=== PATIENT | female | born 1990 | race African-American/Black ===

== ENCOUNTER 2020-05-31 11:23 | Emergency (ER) | payer OTHER ==
[~2020-05-31] VITALS: Ht 172.7 cm; Wt 99.8 kg
[2020-05-31 11:40] VITALS: BP 131/81
--- NOTE | 2020-05-31 11:40 | Emergency Room Report ---
History of Present Illness General Chief Complaint: Abdominal Pain Source: EMS (Clint Patel MD) Present Illness HPI Disclaimer: Please note that this report is being documented using DRAGON technology. This can lead to erroneous entry secondary to incorrect interpretation by the dictating instrument. HPI: 30-year-old female presents for evaluation abdominal pain and vomiting. Symptoms began yesterday morning after breakfast. The previous night she had gotten some takeout food and awoke with an upset stomach. Multiple episodes of bilious emesis but denies blood. Denies diarrhea, flank pain, dysuria. She is currently on her menses. Report some lower pelvic cramping as well as upper epigastric discomfort. Unable to eat or drink yesterday. Reports persistent nausea, lightheadedness. Denies cough, fever, sore throat, nasal congestion, chest pain, palpitations, shortness of breath. Status post cholecystectomy. Denies alcohol use. Reports regular marijuana use. PMH: Obesity PSH: Cholecystectomy Allergies: Denies Social Hx: Regular marijuana use (Clint Patel MD) Allergies: Coded Allergies: No Known Allergies (Unverified , 05/31/20) COVID-19 Screening Contact w/high risk pt: No Experienced COVID-19 symptoms?: No COVID-19 Testing performed FEEDER TENDER: No (Clint Patel MD) Review of Systems All Other Systems: negative except mentioned in HPI (Clint Patel MD) Physical Exam Vital Signs Date Time Temp Pulse Resp B/P (MAP) Pulse Ox O2 Delivery O2 Flow Rate FiO2 05/31/20 11:17 97.7 68 19 138/88 (105) 100 Room Air General: Awake and alert, appears fatigued and mildly uncomfortable HEENT: NC/AT. EOMI. Cardiovascular: RRR. S1 and S2 normal. No murmur appreciated Resp: Normal work of breathing. No cough, wheezing or crackles appreciated Abdomen: Abdomen is soft, nondistended. Obese abdomen. Tender in the epigastrium and suprapubic region. Negative Nichole's tenderness. No rebound. No masses appreciated. Skin: Intact. No abrasions, laceration or rash over the exposed skin MSK: Normal tone and bulk. Moving all extremities. No obvious deformity. Neuro: Awake and alert. Mentating appropriately. (Clint Patel MD) Medical Decision Making Diagnostic Impression: Primary Impression: Gastroenteritis ER Course Is a 30-year-old female presenting for evaluation of abdominal pain vomiting for 1 day. Differential includes was not limited to food poisoning, gastritis, gastroenteritis, pancreatitis, hepatitis, bowel obstruction, appendicitis, cyclic vomiting syndrome, menstrual cramps, pyelonephritis, UTI to name a few. Suspect a foodborne illness or cyclic vomiting syndrome secondary to marijuana use. Abdomen is soft aside from mild tenderness in the pelvis and epigastrium but no guarding or signs of acute peritonitis. Will obtain labs, provide IV fluids, antiemetics, antacids and pain medication. Can advance work-up as needed. 1430: Labs have returned so far within normal limits. No gross electrolyte abnormalities, significant white count or renal derangement. Urinalysis is pending. Patient remained symptomatic and received additional antiemetics. Because of her persistent pain and discomfort a CT scan was ordered and is pending. Patient will be signed out to oncoming physician pending CT results, urinalysis and ultimate disposition. Laboratory Tests Test 05/31/20 11:44 White Blood Count 6.1 K/UL (4.8-10.8) Red Blood Count 5.50 M/UL (4.20-5.40) H Hemoglobin 14.5 G/DL (12.0-16.0) Hematocrit 46.5 % (37.0-47.0) Mean Corpuscular Volume 85 FL (80-99) Mean Corpuscular Hemoglobin 26.5 PG (27.0-31.0) L Mean Corpuscular Hemoglobin Concent 31.3 G/DL (32.0-36.0) L Red Cell Distribution Width 14.0 % (11.6-14.8) Platelet Count 271 K/UL (150-450) Mean Platelet Volume 8.7 FL (6.5-10.1) Neutrophils (%) (Auto) 62.3 % (45.0-75.0) Lymphocytes (%) (Auto) 29.4 % (20.0-45.0) Monocytes (%) (Auto) 5.2 % (1.0-10.0) Eosinophils (%) (Auto) 2.4 % (0.0-3.0) Basophils (%) (Auto) 0.6 % (0.0-2.0) Sodium Level 144 MMOL/L (136-145) Potassium Level 4.1 MMOL/L (3.5-5.1) Chloride Level 107 MMOL/L (98-107) Carbon Dioxide Level 22 MMOL/L (21-32) Anion Gap 16 mmol/L (5-15) H Blood Urea Nitrogen 13 mg/dL (7-18) Creatinine 0.9 MG/DL (0.55-1.30) Estimated Glomerular Filtration Rate > 60 mL/min (>60) Glucose Level 115 MG/DL (74-106) H Calcium Level 9.6 MG/DL (8.5-10.1) Total Bilirubin 0.4 MG/DL (0.2-1.0) Aspartate Amino Transferase (AST) 22 U/L (15-37) Alanine Aminotransferase (ALT) 18 U/L (12-78) Alkaline Phosphatase 52 U/L (46-116) Total Protein 8.8 G/DL (6.4-8.2) H Albumin 4.4 G/DL (3.4-5.0) Globulin 4.4 g/dL Albumin/Globulin Ratio 1.0 (1.0-2.7) Lipase 230 U/L (73-393) Human Chorionic Gonadotropin, Qual Pending (Clint Patel MD) ER Course Hospital Course 30-year-old F presents to ED with abdominal pain, vomiting Patient initially seen and evaluated by Dr Patel; please see his note for full history and physical Clinical course Labs - no leukocytosis, electrolytes ok, LFTs normal CT scan shows no acute pathology, colitis noted I discussed findings with patient. Denies diarrhea. No fevers or chills. Feels better. Safe for discharge close outpatient follow-up. Does not have a PMD. I will provide referrals I feel this is a highly complex case requiring extensive working including EKG/ Rhythm strip, Xray/CT/US, Blood/urine lab work, repeat exams while in ED, and administration of strong opiates/narcotics for pain control, admission to hospital or close patient follow up. Diagnosis - gastroenteritis Stable and discharged to home. Followup with PMD. Return to ED if symptoms recur or worsen I know she every time Labs Test 05/31/20 11:44 05/31/20 15:50 White Blood Count 6.1 K/UL (4.8-10.8) Red Blood Count 5.50 M/UL (4.20-5.40) Hemoglobin 14.5 G/DL (12.0-16.0) Hematocrit 46.5 % (37.0-47.0) Mean Corpuscular Volume 85 FL (80-99) Mean Corpuscular Hemoglobin 26.5 PG (27.0-31.0) Mean Corpuscular Hemoglobin Concent 31.3 G/DL (32.0-36.0) Red Cell Distribution Width 14.0 % (11.6-14.8) Platelet Count 271 K/UL (150-450) Mean Platelet Volume 8.7 FL (6.5-10.1) Neutrophils (%) (Auto) 62.3 % (45.0-75.0) Lymphocytes (%) (Auto) 29.4 % (20.0-45.0) Monocytes (%) (Auto) 5.2 % (1.0-10.0) Eosinophils (%) (Auto) 2.4 % (0.0-3.0) Basophils (%) (Auto) 0.6 % (0.0-2.0) Sodium Level 144 MMOL/L (136-145) Potassium Level 4.1 MMOL/L (3.5-5.1) Chloride Level 107 MMOL/L (98-107) Carbon Dioxide Level 22 MMOL/L (21-32) Anion Gap 16 mmol/L (5-15) Blood Urea Nitrogen 13 mg/dL (7-18) Creatinine 0.9 MG/DL (0.55-1.30) Estimat Glomerular Filtration Rate > 60 mL/min (>60) Glucose Level 115 MG/DL (74-106) Calcium Level 9.6 MG/DL (8.5-10.1) Total Bilirubin 0.4 MG/DL (0.2-1.0) Aspartate Amino Transf (AST/SGOT) 22 U/L (15-37) Alanine Aminotransferase (ALT/SGPT) 18 U/L (12-78) Alkaline Phosphatase 52 U/L (46-116) Total Protein 8.8 G/DL (6.4-8.2) Albumin 4.4 G/DL (3.4-5.0) Globulin 4.4 g/dL Albumin/Globulin Ratio 1.0 (1.0-2.7) Lipase 230 U/L (73-393) Human Chorionic Gonadotropin, Qual Negative (NEGATIVE) Urine Color Pale yellow Urine Appearance Clear Urine pH 8 (4.5-8.0) Urine Specific [place] 1.010 (1.005-1.035) Urine Protein Negative (NEGATIVE) Urine Glucose (UA) Negative (NEGATIVE) Urine Ketones 2+ (NEGATIVE) Urine Blood 5+ (NEGATIVE) Urine Nitrite Negative (NEGATIVE) Urine Bilirubin Negative (NEGATIVE) Urine Urobilinogen Normal MG/DL (0.0-1.0) Urine Leukocyte Esterase Negative (NEGATIVE) Urine RBC Tntc /HPF (0 - 2) Urine WBC 0-2 /HPF (0 - 2) Urine Squamous Epithelial Cells Occasional /LPF Urine Bacteria Occasional /HPF (NONE) Urine HCG, Qualitative Negative (NEGATIVE) (Cesar Girard MD) CT/MRI/US Diagnostic Results CT/MRI/US Diagnostic Results : Imaging Test Ordered: CT A/P Impression Comparison: none Findings: Lack of enteric contrast limits assessment of the GI tract. The appendix is normal. There is questionable very mild wall thickening of the ascending and proximal transverse colon. This is probably an artifact of lack of distention, however. No evidence of colonic diverticulosis or diverticulitis. No small bowel distention. No free or loculated intraperitoneal gas or fluid is evident. The distal esophagus, stomach, duodenum are unremarkable. The gallbladder has been removed. The liver is significantly hypoattenuating relative to the spleen. No focal abnormality. No biliary ductal dilatation. The pancreas, spleen, adrenals, kidneys are unremarkable. No retroperitoneal or mesenteric mass or adenopathy. Normal uterus and ovaries. No pelvic mass or adenopathy. The included lung bases are clear. The bones are unremarkable. Impression: Limited assessment of the GI tract, due to lack of enteric contrast administration Questionable mild wall thickening ascending and proximal transverse colon. Probably an artifact of under distention, but could indicate mild colitis changes if real. Correlate with clinical findings No acute abnormality otherwise Hypoattenuation of the liver, consistent with fatty change Prior cholecystectomy The CT scanner at [facility] is accredited by the [employer] and the scans are performed using protocols designed to limit radiation exposure to as low as reasonably achievable to attain images of sufficient resolution adequate for diagnostic evaluation. (Cesar Girard MD) Last Vital Signs Date Time Temp Pulse Resp B/P (MAP) Pulse Ox O2 Delivery O2 Flow Rate FiO2 7/10/20 11:17 97.7 68 19 138/88 (105) 100 Room Air (Clint Patel MD) Status: improved (Cesar Girard MD) Disposition: HOME, SELF-CARE Condition: Stable Scripts Dicyclomine Hcl* (DICYCLOMINE HCL*) 10 Mg Capsule 10 MG ORAL QID, #20 CAP Prov: Cesar Girard MD 05/31/20 Ondansetron Odt* (ZOFRAN ODT*) 4 Mg Tab.rapdis 4 MG BC EVERY 6 HOURS PRN for Nausea & Vomiting, #20 TAB 0 Refills Prov: Cesar Girard MD 05/31/20 Famotidine* (Pepcid 20mg tablet*) 20 Mg Tablet 20 MG ORAL DAILY, #30 TAB 0 Refills Prov: Cesar Girard MD 05/31/20 Clint Patel MD May 31, 2020 11:40 Cesar Girard MD May 31, 2020 18:04
[2020-05-31 11:59] LABS: BASOPHILS % (AUTO) 0.6 % (0.0-2.0); EOSINOPHILS % (AUTO) 2.4 % (0.0-3.0); HEMATOCRIT 46.5 % (37.0-47.0); HEMOGLOBIN 14.5 G/DL (12.0-16.0); LYMPHOCYTES % (AUTO) 29.4 % (20.0-45.0); MEAN CORPUSCULAR VOLUME 85 FL (80-99); MONOCYTES % (AUTO) 5.2 % (1.0-10.0); NEUTROPHILS % (AUTO) 62.3 % (45.0-75.0); PLATELET COUNT 271 K/UL (150-450); WHITE BLOOD COUNT 6.1 K/UL (4.8-10.8)
[2020-05-31] MEDS ORDERED: LORazepam Inj 2mg/ml 1ml IV ONE (12:15)
[2020-05-31 12:32] LABS: ANION GAP 16 mmol/L (5-15); BLOOD UREA NITROGEN 13 mg/dL (7-18); CALCIUM 9.6 MG/DL (8.5-10.1); CARBON DIOXIDE 22 MMOL/L (21-32); CHLORIDE 107 MMOL/L (98-107); CREATININE 0.9 MG/DL (0.55-1.30); POTASSIUM 4.1 MMOL/L (3.5-5.1); SODIUM 144 MMOL/L (136-145)
[2020-05-31 12:36] LABS: ALANINE AMINOTRANSFERASE 18 U/L (12-78); ALBUMIN 4.4 G/DL (3.4-5.0); ALKALINE PHOSPHATASE 52 U/L (46-116); ASPARTATE AMINO TRANSFERASE 22 U/L (15-37); BILIRUBIN,TOTAL 0.4 MG/DL (0.2-1.0)
[2020-05-31] MEDS ORDERED: Metoclopramide 10mg/2ml Inj IVP ONE (12:45)
[2020-05-31] MEDS ORDERED: Omnipaque-300 100ml vial INJ PRN (13:45)
[2020-05-31 14:00] VITALS: BP 127/79
[2020-05-31 16:01] LABS: APPEARANCE,URINE CLEAR; BILIRUBIN, URINE NEGATIVE (NEGATIVE); COLOR,URINE PALE YELLOW; GLUCOSE, URINE (UA) NEGATIVE (NEGATIVE); KETONES,URINE 2+ (NEGATIVE); LEUKOCYTE ESTERASE ,URINE NEGATIVE (NEGATIVE); NITRITE,URINE NEGATIVE (NEGATIVE); PH,URINE 8 (4.5-8.0); PROTEIN,URINE NEGATIVE (NEGATIVE); UROBILINOGEN,URINE NORMAL MG/DL (0.0-1.0)
[2020-05-31 16:05] VITALS: BP 121/75
--- NOTE | 2020-05-31 16:50 | Diagnostic Imaging Report ---
Clinical Indication: Abdominal pain Technique: No oral contrast utilized, per emergency room physician request IV administration nonionic contrast. Venous phase spiral acquisition obtained through the abdomen and pelvis. Multiplanar reconstructions were generated. Total dose length product 746 mGycm. CTDIvol(s) 14 mGy. Dose reduction achieved using automated exposure control Comparison: none Findings: Lack of enteric contrast limits assessment of the GI tract. The appendix is normal. There is questionable very mild wall thickening of the ascending and proximal transverse colon. This is probably an artifact of lack of distention, however. No evidence of colonic diverticulosis or diverticulitis. No small bowel distention. No free or loculated intraperitoneal gas or fluid is evident. The distal esophagus, stomach, duodenum are unremarkable. The gallbladder has been removed. The liver is significantly hypoattenuating relative to the spleen. No focal abnormality. No biliary ductal dilatation. The pancreas, spleen, adrenals, kidneys are unremarkable. No retroperitoneal or mesenteric mass or adenopathy. Normal uterus and ovaries. No pelvic mass or adenopathy. The included lung bases are clear. The bones are unremarkable. Impression: Limited assessment of the GI tract, due to lack of enteric contrast administration Questionable mild wall thickening ascending and proximal transverse colon. Probably an artifact of under distention, but could indicate mild colitis changes if real. Correlate with clinical findings No acute abnormality otherwise Hypoattenuation of the liver, consistent with fatty change Prior cholecystectomy The CT scanner at [facility] is accredited by the [employer] and the scans are performed using protocols designed to limit radiation exposure to as low as reasonably achievable to attain images of sufficient resolution adequate for diagnostic evaluation.
[2020-05-31] MEDS ORDERED: DICYCLOMINE HCL10 MG ORAL (17:05)
[2020-05-31] MEDS ORDERED: FAMOTIDINE20 MG ORAL (17:05)
[2020-05-31] MEDS ORDERED: ONDANSETRON ODT4 MG BC (17:05)
[2020-05-31 17:15] VITALS: BP 120/74
== END 2020-05-31 17:15 | disposition home or self-care (01) ==
LOC: EDBD 11:23 → EMR 11:57
DX: K52.9 Noninfective gastroenteritis and colitis, unspecified (principal); Z90.49 Acquired absence of other specified parts of digestive tract; F12.90 Cannabis use, unspecified, uncomplicated
CPT/HCPCS: 36415; 74177; 80053; 81003; 81025; 83690; 84703; 85025; 96361; 96372; 96374; 96375; 96376; 99284; J2405; J2550; J2765; J7030; Q9967; S0028

== ENCOUNTER 2020-06-27 16:19 | Inpatient (IN) | payer OTHER ==
[~2020-06-27] VITALS: Ht 160 cm; Wt 113.4 kg
[~2020-06-27 16:19] MED LIST: DICYCLOMINE HCL10 MG ORAL; FAMOTIDINE20 MG ORAL; ONDANSETRON ODT4 MG BC
[2020-06-27 16:20] VITALS: BP 144/86
--- NOTE | 2020-06-27 16:25 | NUR ---
ED Nurse Note: Patient EULA RA 26 from home c/o lower abdominal pain x 3 days along with nausea and vomiting. Patient states she vomited twice today. Patient denies, dizziness, chest pain, shortness of breath. Breathing even and unlabored. Patient AxO x 4, no s/s of acute distress.
[2020-06-27] MEDS ORDERED: DiphenhydrAMINE 50mg/ml Inj IVP ONE ×2 (16:30→20:15)
[2020-06-27] MEDS ORDERED: Metoclopramide 10mg/2ml Inj IVP ONE ×2 (16:30→20:15)
--- NOTE | 2020-06-27 16:33 | Emergency Room Report ---
History of Present Illness General Chief Complaint: Abdominal Pain Source: Patient Present Illness HPI Patient presents with suprapubic pain that began earlier today. She started to have nausea. This happened a month ago and she was diagnosed with gastroenteritis. She is on her period just like she was last month. She does not think that she is at this time. The pain is rated 7/10. She still has nausea. She vomited quite a bit before EMS arrived. The pain is constant and nonradiating. She says a CT of the abdomen was done last time. The patient is concerned there is something serious going on in her abdomen. This causes anxiety. There is no blood or coffee grounds in the emesis. It is mainly bilious. She denies any diarrhea at this time and denies melena. Patient is self isolated and does not believe she has been exposed to COVID-19. No fevers, chills, sore throat, chest pain, palpitations, dysuria, shortness of breath, joint pain, rashes, visual changes, dizziness, headache. Allergies: Coded Allergies: No Known Allergies (Unverified , 05/31/20) COVID-19 Screening Contact w/high risk pt: No Experienced COVID-19 symptoms?: No COVID-19 Testing performed INSURANCE ADJUSTER: No Patient History Past Medical History: see triage record Social History: Denies: smoking, drug use Social History Narrative not working now Last Menstrual Period: 06/25/20 Reviewed Nursing Documentation: PMH: Agreed; PSxH: Agreed Nursing Documentation-PMH Past Medical History: No Stated History Review of Systems All Other Systems: negative except mentioned in HPI Physical Exam Vital Signs Date Time Temp Pulse Resp B/P (MAP) Pulse Ox O2 Delivery O2 Flow Rate FiO2 06/27/20 16:16 98.4 77 18 144/86 (105) 98 Room Air Sp02 EP Interpretation: reviewed, normal General Appearance: well appearing, no apparent distress, GCS 15, other Head: normocephalic Eyes: bilateral eye normal inspection, bilateral eye PERRL, bilateral eye EOMI ENT: moist mucus membranes Neck: supple Respiratory: lungs clear, normal breath sounds Cardiovascular #1: regular rate, rhythm Cardiovascular #2: 2+ radial (R) Gastrointestinal: no mass, non-distended, no guarding, no rebound, tenderness, decreased bowel sounds Genitourinary: no CVA tenderness Musculoskeletal: back normal, normal range of motion, gait/station normal Neurologic: alert, oriented x3, grossly normal Psychiatric: mood/affect normal - Occasionally anxious Skin: no rash, warm/dry Procedures Critical Care Time Critical Care Time Total Critical Care Time: 30 min bedside evaluation and treatment excludes procedures (EKG, central line). Reason for critical care: Repeated evaluations, repeated treatments for intractable vomiting. Multiple attempts at peripheral IV, review of old records Possible complications: hypotension, hypertension, MD, shock, arrhythmias, metabolic acidosis, end organ damage, respiratory failure. Interventions: Repeat evaluations, multiple treatments for nausea and vomiting, attempts at peripheral IV, CVP, repeat lab evaluation, EKG evaluation for bradycardia Course: Patient presents with suprapubic pain, nausea and vomiting. Initial treatment fairly successful with improvement. Patient deteriorated at time of attempted discharge and repeat evaluation undertaken. Treatment of nausea broadened. Patient still has episodes of retching. Due to poor vascular access IV attempted with ultrasound. Finally central line established. Repeat evaluations. Consultations: nursing staff Performed by: Dr. Smith Tolerated well condition = serious Central Line Central Line : Consent: Verbal Central Line Lumen: triple Maximal Sterile Barrier Tech: yes cap, yes mask, yes sterile gown, yes sterile gloves, yes large sterile sheet, yes hand hygiene, yes chlorhexidine prep Central Line Postion: internal jugular (R) Anesthesia: Lidocaine cc's of anesthesia: 7 US Guided Line?: Yes Vessel visualized with U/S: Right Internal Jugular Ultrasound Findings: Collapsible Vessel, Vessel Patent, Visualize vessel puncture Complications: none Central Line Post Position: sutured, good blood return Attempts: One Patient Tolerated: Well Complications: None Medical Decision Making Diagnostic Impression: Primary Impression: Intractable vomiting with nausea Additional Impressions: Pelvic pain Bradycardia ER Course Patient presents with suprapubic pain. Differential includes ovarian cyst, urinary tract infection, gastroenteritis, ectopic amongst others. By my exam appendicitis is less likely at this point and the patient will be evaluated with ultrasound and labs. The patient is initially treated with IV hydration Reglan and Benadryl. The patient has episodes where she is violently retching and vomiting. Labs with normal white count and normal hemoglobin. CMP unremarkable. Patient had improved. Then at D/C she started to have more nausea. Then started to vomit. IV restart and phenergan and pepcid ordered. Patient accidentally pulled out IV. Phenergan given IM. Diaphoretic and not looking good. Bradycardic -EKG without injury or significant ST changes. Repeat labs. Observation tele. At times patient sleeping calmly. At this time she has increased anxiety, dyspnea and nausea with vomiting. Vomitus is bilious. Staff unable to restart IV. Peripheral IV attempts by me multiple times without success. Central line started. Patient admitted observation telemetry. Last Vital Signs Date Time Temp Pulse Resp B/P (MAP) Pulse Ox O2 Delivery O2 Flow Rate FiO2 06/27/20 18:03 98.2 78 18 138/81 100 Room Air EKG Diagnostic Results Rate: bradycardiac Rhythm: NSR ST Segments: no acute changes Rhythm Strip Diag. Results EP Interpretation: yes Rhythm: no PVC's, no ectopy, other - bradycardia Chest X-Ray Diagnostic Results Chest X-Ray Diagnostic Results : Chest X-Ray Ordered: Yes # of Views/Limited/Complete: 1 View Indication: Other EP Interpretation: Yes Interpretation: no consolidation, no effusion, no pneumothorax, other - CVP and superior vena cava Impression: Other Electronically Signed by: Electronically signed by Andrew Smith MD Diagnostic POCUS Bedside Ultrasound Diagnostics: Bedside US Exam performed: Other - CAP and peripheral IV Indication: Procedure Number of Views: Limited Interpreted by Emergency Physi: Yes Impression: No acute findings Electronically Signed by: Electronically signed by Andrew Smith MD Comment See CVP note Last Vital Signs Date Time Temp Pulse Resp B/P (MAP) Pulse Ox O2 Delivery O2 Flow Rate FiO2 06/28/20 02:49 Room Air 06/28/20 01:27 55 06/28/20 01:00 97.5 18 136/71 (92) 98 Status: improved Disposition: PLACE IN OBSERVATION Condition: Serious Andrew Smith MD Jun 27, 2020 16:33
--- NOTE | 2020-06-27 16:50 | NUR ---
ED Nurse Note: Patient taken to US
--- NOTE | 2020-06-27 17:10 | NUR ---
ED Nurse Note: Patient returned from US
[2020-06-27 17:12] LABS: APPEARANCE,URINE CLOUDY; BILIRUBIN, URINE NEGATIVE (NEGATIVE); GLUCOSE, URINE (UA) NEGATIVE (NEGATIVE); KETONES,URINE NEGATIVE (NEGATIVE); LEUKOCYTE ESTERASE ,URINE 1+ (NEGATIVE); NITRITE,URINE NEGATIVE (NEGATIVE); PH,URINE 6 (4.5-8.0); PROTEIN,URINE 2+ (NEGATIVE); UROBILINOGEN,URINE NORMAL MG/DL (0.0-1.0)
[2020-06-27 17:13] LABS: COLOR,URINE YELLOW
[2020-06-27 17:18] LABS: BASOPHILS % (AUTO) 0.9 % (0.0-2.0); EOSINOPHILS % (AUTO) 4.4 % (0.0-3.0); HEMATOCRIT 42.6 % (37.0-47.0); HEMOGLOBIN 13.8 G/DL (12.0-16.0); LYMPHOCYTES % (AUTO) 30.5 % (20.0-45.0); MEAN CORPUSCULAR VOLUME 83 FL (80-99); MONOCYTES % (AUTO) 6.2 % (1.0-10.0); PLATELET COUNT 245 K/UL (150-450); RED BLOOD COUNT 5.11 M/UL (4.20-5.40); RED CELL DISTRIBUTION WIDTH 14.4 % (11.6-14.8)
[2020-06-27 17:20] LABS: ANION GAP 9 mmol/L (5-15); BLOOD UREA NITROGEN 9 mg/dL (7-18); CALCIUM 9.3 MG/DL (8.5-10.1); CARBON DIOXIDE 27 MMOL/L (21-32); CHLORIDE 106 MMOL/L (98-107); CREATININE 0.9 MG/DL (0.55-1.30); POTASSIUM 3.7 MMOL/L (3.5-5.1); SODIUM 142 MMOL/L (136-145)
[2020-06-27 17:25] LABS: ALANINE AMINOTRANSFERASE 29 U/L (12-78); ALBUMIN 4.4 G/DL (3.4-5.0); ALKALINE PHOSPHATASE 53 U/L (46-116); ASPARTATE AMINO TRANSFERASE 17 U/L (15-37); BILIRUBIN,TOTAL 0.3 MG/DL (0.2-1.0)
--- NOTE | 2020-06-27 17:45 | NUR ---
ED Nurse Note: Patient states current pain is 0/10. Denies need for pain medication.
--- NOTE | 2020-06-27 17:59 | Diagnostic Imaging Report ---
EXAM: US Pelvis Transabdominal, Complete CLINICAL HISTORY: ABD PAIN TECHNIQUE: Real-time complete transabdominal pelvic ultrasound with image documentation. COMPARISON: 05/31/2020 FINDINGS: Uterus/cervix: No myometrial mass. Normal endometrial thickness. Right ovary: 2.9 cm. Underlying follicles. No mass. Normal blood flow. Left ovary: 2.3 cm. Underlying follicles. No mass. Normal blood flow. Free fluid: No free fluid. IMPRESSION: No acute findings.
[2020-06-27 18:03] VITALS: BP 138/81
[2020-06-27] MEDS ORDERED: IBUPROFEN600 M1 ORAL ×2 (18:22)
[2020-06-27] MEDS ORDERED: TYLENOL325 MG ORAL ×2 (18:22)
[2020-06-27] MEDS ORDERED: ONDANSETRON ODT4 MG BC ×2 (18:22)
[2020-06-27] MEDS ORDERED: Promethazine HCl 12.5 MG in NS 55 ML IVPB STA (18:58)
--- NOTE | 2020-06-27 19:00 | NUR ---
ED Nurse Note: Patient vomited greenish clear emesis into emesis bag, feels nauseated. Informed ERMD.
--- NOTE | 2020-06-27 19:02 | NUR ---
HAND-OFF: Report given to Yoli ISIDRO.
--- NOTE | 2020-06-27 19:05 | NUR ---
ED Nurse Note: Previous RN shift removed IV line, unable to start new line, charge nurse made aware, attempted x 4. ERMD aware.
[2020-06-27] MEDS ORDERED: LORazepam Inj 2mg/ml 1ml IM ONE (20:30)
--- NOTE | 2020-06-27 20:40 | NUR ---
ED Nurse Note: patient reported that she has had one previous episode of nausea and dizziness 1 month ago, per pt it occurred during her menstrual period, she is currently on her menstrual period. patient reports that she was diagnosed with gastritis during last episode of abdominal pain and vomiting.
--- NOTE | 2020-06-27 20:51 | NUR ---
ED Nurse Note: Unable to start line, RN x 4 attempted. mechanical maintenance established 24g IV on right forearm, patent. ERMD made aware that repeat blood draw is a slow draw d/t small IV gauge, per ERMD okay if unable to redraw repeat labs since patient is being admitted, prioritize treating symptoms. IV fluids running, all meds administered as ordered.
--- NOTE | 2020-06-27 20:54 | NUR ---
ED Nurse Note: Belongings list completed.
--- NOTE | 2020-06-27 21:17 | NUR ---
ED Nurse Note: Patient accidentally removed 24g IV on right forearm, ERMD aware.
--- NOTE | 2020-06-27 21:35 | NUR ---
ED Nurse Note: Patient currently asleep in bed, no acute distress or current vomiting noted, RN attempting to start IV line.
--- NOTE | 2020-06-27 21:41 | NUR ---
ED Nurse Note: Patient provided with rodo pads.
--- NOTE | 2020-06-27 22:03 | NUR ---
ED Nurse Note: Unable to start IV line, VONDA made aware.
--- NOTE | 2020-06-27 22:29 | NUR ---
ED Nurse Note: Unable to start IV line, ERMD at bedside.
[2020-06-27] MEDS ORDERED: Lidocaine 1% MPF 10mg/ml 5ml INJ ONE (23:30)
--- NOTE | 2020-06-28 00:17 | NUR ---
ED Nurse Note: Repeat labs drawn and sent to lab
[2020-06-28] MEDS ORDERED: Miralax 17gm pkt ORAL PRN (00:30)
[2020-06-28] MEDS ORDERED: Nitroglycerin Subl 0.4mg tab SL PRN (00:30)
[2020-06-28] MEDS ORDERED: Metoclopramide 10mg/2ml Inj IVP PRN (00:30)
--- NOTE | 2020-06-28 00:36 | NUR ---
ED Nurse Note: Report given to DWAINE Sol in telemetry.
[2020-06-28 00:40] LABS: BASOPHILS % (AUTO) 0.7 % (0.0-2.0); EOSINOPHILS % (AUTO) 0.1 % (0.0-3.0); HEMATOCRIT 39.4 % (37.0-47.0); HEMOGLOBIN 12.8 G/DL (12.0-16.0); LYMPHOCYTES % (AUTO) 13.9 % (20.0-45.0); MEAN CORPUSCULAR VOLUME 85 FL (80-99); MONOCYTES % (AUTO) 2.1 % (1.0-10.0); NEUTROPHILS % (AUTO) 83.4 % (45.0-75.0); PLATELET COUNT 226 K/UL (150-450); RED BLOOD COUNT 4.65 M/UL (4.20-5.40); RED CELL DISTRIBUTION WIDTH 13.5 % (11.6-14.8); WHITE BLOOD COUNT 7.3 K/UL (4.8-10.8)
[2020-06-28 00:44] LABS: ANION GAP 9 mmol/L (5-15); BLOOD UREA NITROGEN 10 mg/dL (7-18); CALCIUM 8.9 MG/DL (8.5-10.1); CARBON DIOXIDE 25 MMOL/L (21-32); CHLORIDE 105 MMOL/L (98-107); CREATININE 0.9 MG/DL (0.55-1.30); POTASSIUM 3.9 MMOL/L (3.5-5.1); SODIUM 138 MMOL/L (136-145)
--- NOTE | 2020-06-28 00:45 | NUR ---
TRANSFER TO FLOOR: Patient transferred to telemetry as ordered, per ERMD. Report given to DWAINE Sol. Patient transported via gurney on ACLS protocol with diamond die maker accompanied by 2 RN in stable condition.
[2020-06-28 00:49] LABS: ALANINE AMINOTRANSFERASE 24 U/L (12-78); ALBUMIN 3.9 G/DL (3.4-5.0); ALKALINE PHOSPHATASE 49 U/L (46-116); ASPARTATE AMINO TRANSFERASE 11 U/L (15-37); BILIRUBIN,TOTAL 0.2 MG/DL (0.2-1.0)
[2020-06-28 01:00] VITALS: BP 136/71
--- NOTE | 2020-06-28 01:20 | NUR ---
NURSE NOTES: Patient transported from ED previously from home c/o lower abdominal pain x 3 days along with nausea and vomiting. Patient had episodes of nausea and vomiting in ED, not at present. Patient denies, dizziness, chest pain, shortness of breath. Breathing even and unlabored. Patient AxO x 4, no s/s of acute distress, appears lethargic and detached. monitor tech applied. Belongings checked at bedside with RN from ED. Valuables include $17 hsieh and iPhone, with pt at bedside. Declined to put valuables in safe. In bed, bed is locked in lowest position, side rails x2, bed alarm on as pt is on continuous IV fluids will continue to monitor.
[2020-06-28] MEDS: D5 1/2NS 1,000 ML IV SCH ×2 (01:36→14:06)
--- NOTE | 2020-06-28 03:42 | NUR ---
HAND-OFF: Report given to Mirna Goodwin LVN, RN.
[2020-06-28 04:00] VITALS: BP 103/61
--- NOTE | 2020-06-28 07:07 | NUR ---
NURSE NOTES: RESTED WELL, NO SIGNIFICANT CHANGE OF CONDITION NOTED THROUGHOUT THE NIGHT. SAFETY MAINTAINED. NAD.
--- NOTE | 2020-06-28 07:37 | NUR ---
NURSE NOTES: Received patient in bed. Awake, A/O x4. On room air, respirations unlabored. Right IJ in place with dry dressing, IVF infusing as ordered. Denies pain at this time. Bed low and locked, side rails up x2.
--- NOTE | 2020-06-28 07:50 | NUR ---
NURSE HAND-OFF REPORT: Important Events on Shift:[UNEVENTFUL, NPO, NO N/V/COMPLAINTS OF ABD. PAIN] Patient Status: [STABLE, AFEBRILE] Diet: [NPO] Pending Orders: [ABD US] Pending Results/Labs:[LABS SCHEDULED 06/29] Pending MD notification:[N/A] Latest Vital Signs: Temperature 99.0 , Pulse 55 , B/P 103 /61 , Respiratory Rate 18 , O2 SAT 100 , Room Air, O2 Flow Rate . Vital Sign Comment: []STABLE, AFEBRILE EKG Rhythm: Sinus Bradycardia Rhythm change?: NO MD Notified?: -N/A MD Response: N/A Latest Mayer Fall Score: 20 Fall Risk: Low Risk Safety Measures: Call light Within Reach, Bed Alarm Zone 1, Side Rails Side Rails x2, Bed position Low and Locked. Fall Precautions: Yellow Socks Yellow Gown Door Sign Patient Fall Education Report given to [DWAINE KIRKLAND].
[2020-06-28 08:00] VITALS: BP 106/55
[2020-06-28] MEDS: Pantoprazole Inj IV SCH (08:25)
[2020-06-28] MEDS: Heparin 5000 units/ml inj SUBQ SCH ×2 (08:35→21:56)
--- NOTE | 2020-06-28 10:29 | Diagnostic Imaging Report ---
Procedure: XRAY Chest 1v Reason for study: Chest pain Comparison films: None. FINDINGS: Radiograph is slightly rotated. There is a right central venous catheter with the tip at the cavoatrial junction. No pneumothorax noted. Vascularity is normal. The lung are clear bilaterally. Cardiac and mediastinal silhouette are within normal limits. CP angles are sharp. The bony thorax appear unremarkable. IMPRESSION: Right central venous catheter in place. No pneumothorax. No acute disease.
[2020-06-28 12:00] VITALS: BP 123/72
--- NOTE | 2020-06-28 12:13 | NUR ---
NURSE NOTES: Dr. Pike contacted for diet orders. Clear liquid diet entered.
--- NOTE | 2020-06-28 12:29 | NUR ---
CASE MANAGEMENT:REVIEW BIBA CC; ABDOMINAL PAIN. N/V SI: INTRACTABLE VOMITING. PELVIC PAIN 98.5 55 18 144/86 98% ON RA GLUCOSE+124 IS: IV REGLAN 1L NS BOLUS IV BENADRYL IV ZOFRAN IV PEPCID IV PHENERGAN IV ATIVAN US PELVIS/TRANSVAGINAL NPO : TO TELEMETRY
--- NOTE | 2020-06-28 12:45 | NUR ---
INSURANCE PER B/AR INFO FAXED TO [facility] F:[phone] REF [id number] Addendum: 06/28/20 at 1356 by NENA ARREOLA RN RN INSURANCE TELEPHONE [phone] Addendum: 06/28/20 at 1414 by RAJESH TORRES LVN LVN RE-FAXED TO [facility] T: [phone] F: [phone] [id number]
--- NOTE | 2020-06-28 12:49 | NUR ---
MD NOTIFICATION INFORMED MD'S OF OBSERVATION vs INPATIENT DR LEE, DR CLEMENTS AND DR RUSHING
--- NOTE | 2020-06-28 13:27 | Consultation ---
History of Present Illness General Date patient seen: Jun 28, 2020 Chief Complaint: Abdominal Pain Present Illness HPI 30 year old female with hx of gastroenteritis recently presented to ER with suprapubic pain, nausea. The pain is rated 7/10. She vomited quite a bit before EMS arrived. The pain is constant and nonradiating. She says a CT of the abdomen was done last time. There is no blood or coffee grounds in the emesis. It is mainly bilious. She denies any diarrhea at this time and denies melena. She is admitted for intractable nausea and vomiting. Allergies: Coded Allergies: No Known Allergies (Unverified , 05/31/20) Medication History Scheduled Dicyclomine Hcl* (Dicyclomine Hcl*), 10 MG ORAL QID Famotidine* (Pepcid 20mg tablet*), 20 MG ORAL DAILY Scheduled PRN Ondansetron Odt* (Zofran Odt*), 4 MG BC EVERY 6 HOURS PRN for Nausea & Vomiting Patient History Healthcare decision maker Resuscitation status Advanced Directive on File Past Medical/Surgical History Past Medical/Surgical History: (1) Gastroenteritis Review of Systems Constitutional: Reports: no symptoms Eye: Reports: no symptoms ENT: Reports: no symptoms Physical Exam General Appearance: WD/WN, no apparent distress Lines, tubes and drains: peripheral HEENT: normocephalic, atraumatic Neck: non-tender, normal alignment Respiratory/Chest: chest wall non-tender, lungs clear, normal breath sounds Cardiovascular/Chest: normal peripheral pulses, normal rate Abdomen: normal bowel sounds, non tender, soft Extremities: normal range of motion, non-tender Skin Exam: normal pigmentation Last 24 Hour Vital Signs Date Time Temp Pulse Resp B/P (MAP) Pulse Ox O2 Delivery O2 Flow Rate FiO2 06/28/20 08:11 Room Air 06/28/20 08:00 98.2 68 18 106/55 (72) 98 06/28/20 08:00 55 06/28/20 04:03 55 06/28/20 04:00 65 06/28/20 04:00 99.0 73 18 103/61 (75) 100 06/28/20 02:49 Room Air 06/28/20 01:27 55 06/28/20 01:00 97.5 59 18 136/71 (92) 98 06/28/20 00:45 98.4 84 12 135/84 100 Room Air 06/27/20 18:03 98.2 78 18 138/81 100 Room Air 06/27/20 16:20 98.4 82 18 144/86 98 Room Air 06/27/20 16:20 77 18 Room Air 06/27/20 16:16 98.4 77 18 144/86 (105) 98 Room Air Intake and Output 06/27/20 06/28/20 19:00 07:00 Intake Total 875 ml Balance 875 ml Intake Oral 0 ml IV Total 875 ml # Voids 4 Laboratory Tests Test 06/27/20 16:45 06/28/20 00:13 White Blood Count 6.0 K/UL (4.8-10.8) 7.3 K/UL (4.8-10.8) Red Blood Count 5.11 M/UL (4.20-5.40) 4.65 M/UL (4.20-5.40) Hemoglobin 13.8 G/DL (12.0-16.0) 12.8 G/DL (12.0-16.0) Hematocrit 42.6 % (37.0-47.0) 39.4 % (37.0-47.0) Mean Corpuscular Volume 83 FL (80-99) 85 FL (80-99) Mean Corpuscular Hemoglobin 26.9 PG (27.0-31.0) L 27.6 PG (27.0-31.0) Mean Corpuscular Hemoglobin Concent 32.3 G/DL (32.0-36.0) 32.6 G/DL (32.0-36.0) Red Cell Distribution Width 14.4 % (11.6-14.8) 13.5 % (11.6-14.8) Platelet Count 245 K/UL (150-450) 226 K/UL (150-450) Mean Platelet Volume 8.8 FL (6.5-10.1) 8.4 FL (6.5-10.1) Neutrophils (%) (Auto) 58.0 % (45.0-75.0) 83.4 % (45.0-75.0) H Lymphocytes (%) (Auto) 30.5 % (20.0-45.0) 13.9 % (20.0-45.0) L Monocytes (%) (Auto) 6.2 % (1.0-10.0) 2.1 % (1.0-10.0) Eosinophils (%) (Auto) 4.4 % (0.0-3.0) H 0.1 % (0.0-3.0) Basophils (%) (Auto) 0.9 % (0.0-2.0) 0.7 % (0.0-2.0) Prothrombin Time 10.7 SEC (9.30-11.50) Prothromb Time International Ratio 1.0 (0.9-1.1) Activated Partial Thromboplast Time 27 SEC (23-33) Urine Color Yellow Urine Appearance Cloudy Urine pH 6 (4.5-8.0) Urine Specific [place] 1.020 (1.005-1.035) Urine Protein 2+ (NEGATIVE) H Urine Glucose (UA) Negative (NEGATIVE) Urine Ketones Negative (NEGATIVE) Urine Blood 5+ (NEGATIVE) H Urine Nitrite Negative (NEGATIVE) Urine Bilirubin Negative (NEGATIVE) Urine Urobilinogen Normal MG/DL (0.0-1.0) Urine Leukocyte Esterase 1+ (NEGATIVE) H Urine RBC Tntc /HPF (0 - 2) H Urine WBC 2-4 /HPF (0 - 2) Urine Squamous Epithelial Cells Few /LPF (NONE/OCC) Urine Bacteria Few /HPF (NONE) Sodium Level 142 MMOL/L (136-145) 138 MMOL/L (136-145) Potassium Level 3.7 MMOL/L (3.5-5.1) 3.9 MMOL/L (3.5-5.1) Chloride Level 106 MMOL/L (98-107) 105 MMOL/L (98-107) Carbon Dioxide Level 27 MMOL/L (21-32) 25 MMOL/L (21-32) Anion Gap 9 mmol/L (5-15) 9 mmol/L (5-15) Blood Urea Nitrogen 9 mg/dL (7-18) 10 mg/dL (7-18) Creatinine 0.9 MG/DL (0.55-1.30) 0.9 MG/DL (0.55-1.30) Estimat Glomerular Filtration Rate > 60 mL/min (>60) > 60 mL/min (>60) Glucose Level 92 MG/DL (74-106) 124 MG/DL (74-106) H Calcium Level 9.3 MG/DL (8.5-10.1) 8.9 MG/DL (8.5-10.1) Total Bilirubin 0.3 MG/DL (0.2-1.0) 0.2 MG/DL (0.2-1.0) Aspartate Amino Transf (AST/SGOT) 17 U/L (15-37) 11 U/L (15-37) L Alanine Aminotransferase (ALT/SGPT) 29 U/L (12-78) 24 U/L (12-78) Alkaline Phosphatase 53 U/L (46-116) 49 U/L (46-116) Total Protein 8.8 G/DL (6.4-8.2) H 7.9 G/DL (6.4-8.2) Albumin 4.4 G/DL (3.4-5.0) 3.9 G/DL (3.4-5.0) Globulin 4.4 g/dL 4.0 g/dL Albumin/Globulin Ratio 1.0 (1.0-2.7) 1.0 (1.0-2.7) Lipase 135 U/L (73-393) 198 U/L (73-393) Human Chorionic Gonadotropin, Qual Negative (NEGATIVE) Height (Feet): 5 Height (Inches): 3.00 Weight (Pounds): 250 Medications Current Medications Medications (Trade) Dose Ordered Sig/Dasia Route PRN Reason Start Time Stop Time Status Last Admin Dose Admin Acetaminophen (Tylenol) 650 mg Q4H PRN ORAL fever 06/28/20 00:30 07/28/20 00:29 Dextrose (Dextrose 50%) 25 ml Q30M PRN IV Hypoglycemia 06/28/20 00:30 09/26/20 00:29 Dextrose (Dextrose 50%) 50 ml Q30M PRN IV Hypoglycemia 06/28/20 00:30 09/26/20 00:29 Dextrose/Sodium Chloride 1,000 ml @ 75 mls/hr [id number] IV 06/28/20 01:00 07/28/20 00:59 06/28/20 01:36 Diphenhydramine HCl (Benadryl) 25 mg Q6H PRN ORAL Itching/Pruritis 06/28/20 00:30 07/28/20 00:29 Heparin Sodium (Porcine) (Heparin 5000 units/ml) 5,000 units EVERY 12 HOURS SUBQ 06/28/20 09:00 08/12/20 08:59 06/28/20 08:35 Metoclopramide HCl (Reglan) 10 mg Q6H PRN IVP servere jasminsea 06/28/20 00:30 07/28/20 00:29 Nitroglycerin (Ntg) 0.4 mg Q5M X 3 DOSES PRN SL Prn Chest Pain 06/28/20 00:30 07/28/20 00:29 Ondansetron HCl (Zofran) 4 mg Q6H PRN IVP Nausea & Vomiting 06/28/20 00:30 07/28/20 00:29 Pantoprazole (Protonix) 40 mg DAILY IV 06/28/20 09:00 07/28/20 08:59 06/28/20 08:25 Polyethylene Glycol (Miralax) 17 gm HSPRN PRN ORAL Constipation 06/28/20 00:30 07/28/20 00:29 Promethazine HCl (Phenergan) 25 mg Q6H PRN IM Refractory N/V 06/28/20 00:30 07/03/20 00:29 Temazepam (Restoril) 15 mg HSPRN PRN ORAL Insomnia 06/28/20 00:30 07/05/20 00:29 Assessment/Plan Problem List: (1) Intractable vomiting with nausea ICD Codes: R11.2 - Nausea with vomiting, unspecified SNOMED: 249566949 (2) Pelvic pain ICD Codes: R10.2 - Pelvic and perineal pain SNOMED: 02533048 Assessment/Plan: npo iv fluids antiemetics symptomatic treatment dvt prophylaxis check amylase and lipase GI evaluation. Chasidy Pike MD Jun 28, 2020 13:27
--- NOTE | 2020-06-28 14:42 | Diagnostic Imaging Report ---
ABDOMINAL ULTRASOUND - COMPLETE INDICATION: Abdominal pain. TECHNIQUE: Multiplanar ultrasound examination of the abdomen with greyscale and doppler imaging. COMPARISON: CT abdomen pelvis dated 05/31/2020 FINDINGS: Liver: The liver is normal in size and measures diffusely increased echogenicity. No focal abnormalities are noted. Gallbladder: Surgically absent. Common bile duct: Normal in size. Pancreas: The visualized portion of pancreas is normal in echogenicity. There are no masses. Kidneys: The kidneys are normal in size and echogenicity. There is no hydronephrosis. Spleen: The spleen is normal in size and echogenicity. Aorta: The aorta is normal in caliber. IMPRESSION: 1. No acute sonographic findings. 2. Hepatic steatosis.
[2020-06-28 16:00] VITALS: BP 114/70
--- NOTE | 2020-06-28 16:30 | NUR ---
NURSE NOTES: Patient tolerated clear liquid diet well. No nausea or vomiting.
--- NOTE | 2020-06-28 17:43 | NUR ---
NURSE NOTES: Patient states she had a small BM with yellow bile after eating jello. Diet advanced to full liquids.
--- NOTE | 2020-06-28 17:57 | NUR ---
NURSE NOTES: Patient is asking for a scope exam that the doctor had mentioned. Dr. Pike made aware. Consult for Dr. Hernandes obtained and carried out.
--- NOTE | 2020-06-28 19:32 | History & Physical ---
History and Physical History & Physicial dictation number: [id number] Gerardo Quijano MD Jun 28, 2020 19:32
--- NOTE | 2020-06-28 19:39 | NUR ---
NURSE HAND-OFF REPORT: Important Events on Shift:[advanced diet] Patient Status: [] Diet: [full liquids] Pending Orders: [] Pending Results/Labs:[] Pending MD notification:[] Latest Vital Signs: Temperature 98.0 , Pulse 65 , B/P 114 /70 , Respiratory Rate 17 , O2 SAT 100 , Room Air, O2 Flow Rate . Vital Sign Comment: [] EKG Rhythm: Sinus Rhythm Rhythm change?: N MD Notified?: N - MD Response: Latest Mayer Fall Score: 20 Fall Risk: Low Risk Safety Measures: Call light Within Reach, Bed Alarm Zone 1, Side Rails Side Rails x2, Bed position Low and Locked. Fall Precautions: Patient Fall Education Report given to [Christa GONZALEZ].
[2020-06-28 20:00] VITALS: BP 111/70
--- NOTE | 2020-06-28 20:00 | NUR ---
NURSE NOTES: RECEIVED PATIENT LYING IN BED, AWAKE, ALERT/ORIENTED X4, VERBALLY RESPONSIVE, DENIES PAIN, NO SIGNS AND SYMPTOMS OF ACUTE CARDIO RESPIRATORY DISTRESS/SHORTNESS OF BREATH, DENIES CHEST PAIN, NOTED WITH TRACE EDEMA, ENCOURAGED ELEVATION, CONTINUE ON BOTTOM MAN. IV INTACT, NO REDNESS/SWELLING NOTED TO SITE. ABDOMEN OBESE/SOFT/NON DISTENDED/AUDIBLE BOWEL SOUNDS, TOLERATING ADVANCED DIET, DENIES ABDOMINAL PAIN, NO N/V. SIDE RAILS UP X2 FOR MOBILITY, BED IN LOWEST POSITION FOR SAFETY, ENCOURAGED PATIENT TO UTILIZE CALL LIGHT FOR ASSISTANCE, VERBALIZED UNDERSTANDING. CONTINUE WITH CURRENT PLAN OF CARE. NAD.
--- NOTE | 2020-06-28 20:00 | NUR ---
NURSE NOTES: Patient received from Corina ISIDRO. Patient in stable condition. Alert and oriented x4. Saturating well on air. [place] draining well to gravity with ue. IV site patent and intact at Right IJ Catheter Triple Lumen with D5 1/2 NS running @ 75mls/hr. Bed in lowest position and locked. Bedside table and call light within reach. Will continue plan of care.
--- NOTE | 2020-06-28 20:30 | NUR ---
NURSE HAND-OFF REPORT: Important Events on Shift:[ADVANCED DIET TO FULL LIQUID - DENIES ABDOMINAL PAIN, NO N/V-DR. CONNER CONSULTING/GASTROENTERITIS] Patient Status: [STABLE] Diet: [FULL LIQUID] Pending Orders: [N/A] Pending Results/Labs:[N/A] Pending MD notification:[N/A] Latest Vital Signs: Temperature 98.0 , Pulse 65 , B/P 114 /70 , Respiratory Rate 17 , O2 SAT 100 , Room Air, O2 Flow Rate . Vital Sign Comment: [STABLE] EKG Rhythm: Sinus Rhythm Rhythm change?: N MD Notified?: EKG 06/27, MD AWARE OF RESULTS MD Response: Latest Mayer Fall Score: 20 Fall Risk: Low Risk Safety Measures: Call light Within Reach, Bed Alarm Zone 1, Side Rails Side Rails x2, Bed position Low and Locked. Fall Precautions: Patient Fall Education Report given to [DWAINE LEON].
[2020-06-28] MEDS ORDERED: cefTRIAXone 1 GM in D5W 55 ML IVPB SCH (22:00)
--- NOTE | 2020-06-28 23:15 | History and Physical Report ---
DATE OF ADMISSION: 06/27/2020 CHIEF COMPLAINT: Intractable nausea and vomiting. HISTORY OF PRESENT ILLNESS: This is a 30-year-old female denies any past medical history, only past surgical history significant for cholecystectomy who presented to the hospital complaining about intractable nausea and vomiting, 7/10 pain on the pelvic area. She was recently hospitalized about a month ago with the same symptoms, was told that the possibility of gastroenteritis, prescribed Pepcid and dicyclomine; however, she said that her symptoms was improving and she did not need to use it. She did not have any other symptoms till now, again second episode with the same symptoms, she has been having a pain mostly in the lower abdominal area associated with nausea and vomiting. Denies any diarrhea. Denies any fever or chills. Shortly after initial evaluation in the emergency department, the patient was admitted to the hospital with intractable nausea and vomiting, and pelvic pain. PAST MEDICAL HISTORY/PAST SURGICAL HISTORY: As above history of cholecystectomy with recent history of gastroenteritis. MEDICATIONS AT HOME: None. ALLERGIES: No known drug allergies. SOCIAL HISTORY: The patient smoke medical marijuana. Denies any alcohol or substance abuse. 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 FAMILY HISTORY: Noncontributory. REVIEW OF SYSTEMS: Mostly as above. Denies any dysuria, frequency, hematuria. Denies any hemoptysis or hematochezia. Denies any suicidal or homicidal ideation. Denies any fall or head trauma. Complained about lower abdominal pain. Denies any loss of consciousness. Denies any fall or head trauma. Denies any diarrhea. Denies any recent COVID exposure. PHYSICAL EXAMINATION: VITAL SIGNS: On admission, temperature 98.4, pulse of 77, respirations 18, and blood pressure 144/86. GENERAL: The patient is awake, responsive, no acute distress. HEENT: Head and neck examination, pupils are equal and reactive to light. Extraocular movements intact. Neck was supple. No JVD. LUNGS: Good air entry. No wheezing or rales. HEART: S1, S2. Regular rhythm. Distant heart sounds. No murmur or gallop. ABDOMEN: Soft, nondistended. Morbidly obese. Tenderness in the suprapubic area. No rebound tenderness. No fluid shift. EXTREMITIES: No cyanosis, clubbing, or edema. NEUROLOGIC: Cranial nerves II through XII grossly normal. Motor is 5/5 in all extremities. Gait is intact. RECTAL/GENITOURINARY: Refused and deferred. PSYCHIATRIC: Mood and affect is intact. LABORATORY AND DIAGNOSTIC DATA: On admission, WBC of 6.0, hemoglobin 13, hematocrit 42, and platelets is 245. Sodium is 142, potassium 3.7, chloride 106, bicarb 27, BUN 9, creatinine 0.9, glucose 92, and calcium is 9.3. Beta-HCG negative. Lipase is 135. UA is +2 protein, +5 blood, +1 leukocyte esterase, rbc's. PT of 10, INR 1.0, PTT of 27. The patient had ultrasound of the pelvis, no acute finding. Chest x-ray, right central venous catheter in place, no pneumothorax, no acute disease. Ultrasound of abdomen no acute sonographic finding, hepatic steatosis, kidneys are normal in size and echogenicity. There is no hydronephrosis. The spleen is normal in size and echogenicity. Compared to the previous CT scan dated 05/31/2020, CT scan noted that limited axis. Assessment for the GI tract due to lack of enteric contrast, questionable mild wall thickening in ascending and proximal transverse colon, probably an artifact, underdistention, no acute abnormality, hypoattenuation of the liver consistent with fatty changes, prior history of cholecystectomy. ASSESSMENT: 1. Intractable nausea and vomiting, possible due to colitis, gastroenteritis. 2. Pelvic pain. 3. Morbid obesity. 4. Microhematuria. PLAN: I started the patient on broad-spectrum antibiotics with Rocephin and Flagyl. We follow up with laboratory in the morning, Protonix 40 mg daily, clear liquid diet, advance as tolerated. Az [email or web address].you. We will follow up with Gastroenterology consultation in the morning. Gerardo Quijano M.D. DR: Rubio JOB#: [id number] CC:
[2020-06-29] VITALS: BP 103/67
[2020-06-29 04:00] VITALS: BP 100/56
[2020-06-29] MEDS: D5 1/2NS 1,000 ML IV SCH ×2 (06:27→17:31)
--- NOTE | 2020-06-29 07:46 | NUR ---
HAND-OFF: Report given to Jemma RN. Patient in stable condition. Endorsed plan of care.
--- NOTE | 2020-06-29 07:55 | NUR ---
NURSE NOTES: Received patient in bed asleep. No SOB or acute distress. RIJ 3 lumen intact. HOB elevated. Bed locked in lowest position. Call light within reach. Will continue plan of care.
[2020-06-29 08:00] VITALS: BP 102/65
[2020-06-29] MEDS: Heparin 5000 units/ml inj SUBQ SCH ×2 (08:23→21:24)
[2020-06-29] MEDS: Pantoprazole Inj IV SCH (08:23)
[2020-06-29 08:26] LABS: BASOPHILS % (AUTO) 0.8 % (0.0-2.0); HEMATOCRIT 38.4 % (37.0-47.0); HEMOGLOBIN 12.3 G/DL (12.0-16.0); LYMPHOCYTES % (AUTO) 46.1 % (20.0-45.0); MEAN CORPUSCULAR VOLUME 84 FL (80-99); MONOCYTES % (AUTO) 6.4 % (1.0-10.0); NEUTROPHILS % (AUTO) 45.6 % (45.0-75.0); PLATELET COUNT 205 K/UL (150-450); RED BLOOD COUNT 4.58 M/UL (4.20-5.40); RED CELL DISTRIBUTION WIDTH 13.8 % (11.6-14.8); WHITE BLOOD COUNT 6.8 K/UL (4.8-10.8)
[2020-06-29 08:44] LABS: ALANINE AMINOTRANSFERASE 28 U/L (12-78); ALBUMIN 3.5 G/DL (3.4-5.0); ALBUMIN/GLOBULIN RATIO 1.2 (1.0-2.7); ALKALINE PHOSPHATASE 39 U/L (46-116); AMYLASE 66 U/L (25-115); ANION GAP 8 mmol/L (5-15); ASPARTATE AMINO TRANSFERASE 18 U/L (15-37); BILIRUBIN,TOTAL 0.4 MG/DL (0.2-1.0); BLOOD UREA NITROGEN 10 mg/dL (7-18); CALCIUM 8.8 MG/DL (8.5-10.1); CARBON DIOXIDE 26 MMOL/L (21-32); CHLORIDE 108 MMOL/L (98-107); POTASSIUM 3.4 MMOL/L (3.5-5.1); SODIUM 142 MMOL/L (136-145)
[2020-06-29 08:45] LABS: PHOSPHORUS 2.3 MG/DL (2.5-4.9)
--- NOTE | 2020-06-29 09:05 | General Progress Note ---
Assessment/Plan Problem List: (1) Nausea & vomiting ICD Codes: R11.2 - Nausea with vomiting, unspecified SNOMED: 84402086 (2) Gastroenteritis ICD Codes: K52.9 - Noninfective gastroenteritis and colitis, unspecified SNOMED: 81514411 (3) Pelvic pain ICD Codes: R10.2 - Pelvic and perineal pain SNOMED: 46207543 (4) Intractable vomiting with nausea ICD Codes: R11.2 - Nausea with vomiting, unspecified SNOMED: 347227055 Assessment/Plan: no elevated lipase no elevated LFTS neg abd and pelvic us advance diet consider EGD if needed Subjective ROS Limited/Unobtainable: Yes Allergies: Coded Allergies: No Known Allergies (Unverified , 05/31/20) Objective Last 24 Hour Vital Signs Date Time Temp Pulse Resp B/P (MAP) Pulse Ox O2 Delivery O2 Flow Rate FiO2 06/29/20 08:00 99.0 53 18 102/65 (77) 100 06/29/20 04:00 98.8 52 16 100/56 (71) 98 06/29/20 04:00 58 06/29/20 00:00 58 06/29/20 00:00 98.6 60 20 103/67 (79) 100 06/28/20 21:00 Room Air 06/28/20 20:00 98.8 64 18 111/70 (84) 100 06/28/20 20:00 56 06/28/20 16:00 60 06/28/20 16:00 98.0 65 17 114/70 (85) 100 06/28/20 12:00 98.2 59 20 123/72 (89) 99 06/28/20 12:00 58 Intake and Output 06/28/20 06/29/20 19:00 07:00 Intake Total 725 ml Balance 725 ml Intake Oral 200 ml IV Total 525 ml # Voids 4 2 # Bowel Movements 1 Laboratory Tests 06/29/20 08:00: White Blood Count 6.8, Red Blood Count 4.58, Hemoglobin 12.3, Hematocrit 38.4, Mean Corpuscular Volume 84, Mean Corpuscular Hemoglobin 26.9L, Mean Corpuscular Hemoglobin Concent 32.1, Red Cell Distribution Width 13.8, Platelet Count 205, Mean Platelet Volume 8.3, Neutrophils (%) (Auto) 45.6, Lymphocytes (%) (Auto) 46.1H, Monocytes (%) (Auto) 6.4, Eosinophils (%) (Auto) 1.0, Basophils (%) (Auto ) 0.8, Erythrocyte Sedimentation Rate [Pending], Activated Partial Thromboplast Time 26, Sodium Level 142, Potassium Level 3.4L, Chloride Level 108H, Carbon Dioxide Level 26, Anion Gap 8, Blood Urea Nitrogen 10, Creatinine 1.0, Estimat Glomerular Filtration Rate > 60, Glucose Level 98, Calcium Level 8.8, Phosphorus Level 2.3L, Magnesium Level 1.8, Total Bilirubin 0.4, Aspartate Amino Transf (AST/SGOT) 18, Alanine Aminotransferase (ALT/SGPT) 28, Alkaline Phosphatase 39L, C-Reactive Protein, Quantitative 0.8, Total Protein 6.4, Albumin 3.5, Globulin 2.9, Albumin/Globulin Ratio 1.2, Amylase Level 66, Lipase 197 Height (Feet): 5 Height (Inches): 3.00 Weight (Pounds): 250 General Appearance: alert EENT: normal ENT inspection Neck: supple Cardiovascular: normal rate Respiratory/Chest: decreased breath sounds Abdomen: normal bowel sounds, non tender, soft Extremities: non-tender Jose Luis Hernandes MD Jun 29, 2020 09:05
[2020-06-29 12:00] VITALS: BP 114/77
--- NOTE | 2020-06-29 14:07 | Internal Med Progress Note ---
Subjective Date of Service: Jun 29, 2020 Physician Name [place] Attending Physician Gerardo Quijano MD Current Medications Medications (Trade) Dose Ordered Sig/Dasia Route PRN Reason Start Time Stop Time Status Last Admin Dose Admin Acetaminophen (Tylenol) 650 mg Q4H PRN ORAL fever 06/28/20 00:30 07/28/20 00:29 Ceftriaxone Sodium 1 gm/ Dextrose 55 ml @ 110 mls/hr Q24H IVPB 06/28/20 22:00 07/05/20 21:59 06/28/20 21:54 Dextrose (Dextrose 50%) 25 ml Q30M PRN IV Hypoglycemia 06/28/20 00:30 09/26/20 00:29 Dextrose (Dextrose 50%) 50 ml Q30M PRN IV Hypoglycemia 06/28/20 00:30 09/26/20 00:29 Dextrose/Sodium Chloride 1,000 ml @ 75 mls/hr [id number] IV 06/28/20 01:00 07/28/20 00:59 06/29/20 06:27 Diphenhydramine HCl (Benadryl) 25 mg Q6H PRN ORAL Itching/Pruritis 06/28/20 00:30 07/28/20 00:29 06/29/20 01:10 Famotidine (Pepcid) 20 mg DAILY ORAL 06/29/20 13:30 09/27/20 13:29 06/29/20 13:31 Heparin Sodium (Porcine) (Heparin 5000 units/ml) 5,000 units EVERY 12 HOURS SUBQ 06/28/20 09:00 08/12/20 08:59 06/29/20 08:23 Metoclopramide HCl (Reglan) 10 mg Q6H PRN IVP servere nauasea 06/28/20 00:30 07/28/20 00:29 Metronidazole 100 ml @ 100 mls/hr Q8HR IVPB 06/28/20 23:00 07/05/20 22:59 06/29/20 13:32 Nitroglycerin (Ntg) 0.4 mg Q5M X 3 DOSES PRN SL Prn Chest Pain 06/28/20 00:30 07/28/20 00:29 Ondansetron HCl (Zofran) 4 mg Q6H PRN IVP Nausea & Vomiting 06/28/20 00:30 07/28/20 00:29 Pantoprazole (Protonix) 40 mg DAILY IV 06/28/20 09:00 07/28/20 08:59 06/29/20 08:23 Polyethylene Glycol (Miralax) 17 gm HSPRN PRN ORAL Constipation 06/28/20 00:30 07/28/20 00:29 Promethazine HCl (Phenergan) 25 mg Q6H PRN IM Refractory N/V 06/28/20 00:30 07/03/20 00:29 Temazepam (Restoril) 15 mg HSPRN PRN ORAL Insomnia 06/28/20 00:30 07/05/20 00:29 Allergies: Coded Allergies: No Known Allergies (Unverified , 05/31/20) ROS Limited/Unobtainable: No Constitutional: Reports: no symptoms HEENT: Reports: no symptoms Cardiovascular: Reports: no symptoms Respiratory: Reports: no symptoms Gastrointestinal/Abdominal: Reports: abdominal pain Genitourinary: Reports: no symptoms Neurologic/Psychiatric: Reports: no symptoms Subjective 30YO F admitted with abdominal pain, nausea and vomiting. Now Gastroenteritis/ colitis. Cover for Int Kvng-Dr Quijano Objective Last Vital Signs Date Time Temp Pulse Resp B/P (MAP) Pulse Ox O2 Delivery O2 Flow Rate FiO2 06/29/20 12:00 55 06/29/20 12:00 97.9 20 114/77 (89) 99 06/29/20 09:00 Room Air Laboratory Tests Test 06/29/20 08:00 White Blood Count 6.8 K/UL (4.8-10.8) Red Blood Count 4.58 M/UL (4.20-5.40) Hemoglobin 12.3 G/DL (12.0-16.0) Hematocrit 38.4 % (37.0-47.0) Mean Corpuscular Volume 84 FL (80-99) Mean Corpuscular Hemoglobin 26.9 PG (27.0-31.0) L Mean Corpuscular Hemoglobin Concent 32.1 G/DL (32.0-36.0) Red Cell Distribution Width 13.8 % (11.6-14.8) Platelet Count 205 K/UL (150-450) Mean Platelet Volume 8.3 FL (6.5-10.1) Neutrophils (%) (Auto) 45.6 % (45.0-75.0) Lymphocytes (%) (Auto) 46.1 % (20.0-45.0) H Monocytes (%) (Auto) 6.4 % (1.0-10.0) Eosinophils (%) (Auto) 1.0 % (0.0-3.0) Basophils (%) (Auto) 0.8 % (0.0-2.0) Erythrocyte Sedimentation Rate 19 MM/HR (0-20) Activated Partial Thromboplast Time 26 SEC (23-33) Sodium Level 142 MMOL/L (136-145) Potassium Level 3.4 MMOL/L (3.5-5.1) L Chloride Level 108 MMOL/L (98-107) H Carbon Dioxide Level 26 MMOL/L (21-32) Anion Gap 8 mmol/L (5-15) Blood Urea Nitrogen 10 mg/dL (7-18) Creatinine 1.0 MG/DL (0.55-1.30) Estimat Glomerular Filtration Rate > 60 mL/min (>60) Glucose Level 98 MG/DL (74-106) Calcium Level 8.8 MG/DL (8.5-10.1) Phosphorus Level 2.3 MG/DL (2.5-4.9) L Magnesium Level 1.8 MG/DL (1.8-2.4) Total Bilirubin 0.4 MG/DL (0.2-1.0) Aspartate Amino Transf (AST/SGOT) 18 U/L (15-37) Alanine Aminotransferase (ALT/SGPT) 28 U/L (12-78) Alkaline Phosphatase 39 U/L (46-116) L C-Reactive Protein, Quantitative 0.8 mg/dL (0.00-0.90) Total Protein 6.4 G/DL (6.4-8.2) Albumin 3.5 G/DL (3.4-5.0) Globulin 2.9 g/dL Albumin/Globulin Ratio 1.2 (1.0-2.7) Amylase Level 66 U/L (25-115) Lipase 197 U/L (73-393) Intake and Output 06/28/20 06/29/20 19:00 07:00 Intake Total 725 ml Balance 725 ml Intake Oral 200 ml IV Total 525 ml # Voids 4 2 # Bowel Movements 1 Objective PHYSICAL EXAMINATION: GENERAL: The patient is awake, responsive, no acute distress. HEENT: Head and neck examination, pupils are equal and reactive to light. Extraocular movements intact. Neck was supple. No JVD. LUNGS: Good air entry. No wheezing or rales. HEART: S1, S2. Regular rhythm. Distant heart sounds. No murmur or gallop. ABDOMEN: Soft, nondistended. Morbidly obese. Tenderness in the suprapubic area. No rebound tenderness. No fluid shift. EXTREMITIES: No cyanosis, clubbing, or edema. NEUROLOGIC: Cranial nerves II through XII grossly normal. Motor is 5/5 in all extremities. Gait is intact. RECTAL/GENITOURINARY: Refused and deferred. PSYCHIATRIC: Mood and affect is intact. Assessment/Plan Assessment/Plan ASSESSMENT: 1. Intractable nausea and vomiting, possible due to colitis, gastroenteritis. 2. Pelvic pain. 3. Morbid obesity. 4. Microhematuria. PLAN: 1. antibiotics =Rocephin and Flagyl. 2. Protonix 40 mg daily 3. Tolerating clear liquid diet, advance as tolerated. 4. Zofran p.r.n. 5. Gastroenterology consultation = Dr Cecilio Tello,[place] PADRON Jun 29, 2020 14:07
--- NOTE | 2020-06-29 15:22 | NUR ---
NURSE NOTES: Central line on Right IJ removed as ordered. No bleeding noted.
--- NOTE | 2020-06-29 15:40 | NUR ---
NURSE NOTES: Report received from Jemma RN. Patient transferred from [id number]. Patient is AxOx4, not in distress, no complaints of pain or abdominal discomfort at this time. No bouts of vomiting as per nurse. PIV on left wrist patent and infusing IVF as ordered. No skin issues noted. Belongings accounted for. Nurse endorsed still need urine specimen for drug screen, patient instructed. Bed low and locked, siderails upx2, call light placed within reach and instructed to call nurse for assistance. Will continue to monitor.
--- NOTE | 2020-06-29 15:48 | NUR ---
HAND-OFF: Patient transferred to [facility] 312-2. Telebox removed. Report given to Radha ISIDRO. Belongings accounted for. No new skin issues noted.
[2020-06-29 16:00] VITALS: BP 117/70
[2020-06-29] MEDS ORDERED: Metoclopramide 10mg/2ml Inj IVP PRN (16:00)
[2020-06-29] MEDS ORDERED: Miralax 17gm pkt ORAL PRN (16:00)
[2020-06-29] MEDS ORDERED: Nitroglycerin Subl 0.4mg tab SL PRN (16:00)
--- NOTE | 2020-06-29 17:38 | NUR ---
NURSE NOTES: Pt complained of feeling bloated and having difficulty passing gas. Wanted to ask dr if she could get medication to help with this. Dr. Hernandes notified, awaiting response.
--- NOTE | 2020-06-29 17:52 | Pulmonology Progress Note ---
Subjective ROS Limited/Unobtainable: No Allergies: Coded Allergies: No Known Allergies (Unverified , 05/31/20) Objective Last 24 Hour Vital Signs Date Time Temp Pulse Resp B/P (MAP) Pulse Ox O2 Delivery O2 Flow Rate FiO2 06/29/20 16:00 97.8 72 20 117/70 (86) 98 06/29/20 12:00 55 06/29/20 12:00 97.9 58 20 114/77 (89) 99 06/29/20 09:00 Room Air 06/29/20 08:00 99.0 53 18 102/65 (77) 100 06/29/20 08:00 57 06/29/20 04:00 98.8 52 16 100/56 (71) 98 06/29/20 04:00 58 06/29/20 00:00 58 06/29/20 00:00 98.6 60 20 103/67 (79) 100 06/28/20 21:00 Room Air 06/28/20 20:00 98.8 64 18 111/70 (84) 100 06/28/20 20:00 56 Intake and Output 06/28/20 06/29/20 19:00 07:00 Intake Total 725 ml Balance 725 ml Intake Oral 200 ml IV Total 525 ml # Voids 4 2 # Bowel Movements 1 General Appearance: WD/WN HEENT: normocephalic, atraumatic Respiratory: chest wall non-tender, normal breath sounds Cardiovascular: normal peripheral pulses, regular rhythm Abdomen: normal bowel sounds, soft, non tender Genitourinary: normal external genitalia Skin: no rash 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, abnormal gait, alert Laboratory Tests 06/29/20 08:00: White Blood Count 6.8, Red Blood Count 4.58, Hemoglobin 12.3, Hematocrit 38.4, Mean Corpuscular Volume 84, Mean Corpuscular Hemoglobin 26.9L, Mean Corpuscular Hemoglobin Concent 32.1, Red Cell Distribution Width 13.8, Platelet Count 205, Mean Platelet Volume 8.3, Neutrophils (%) (Auto) 45.6, Lymphocytes (%) (Auto) 46.1H, Monocytes (%) (Auto) 6.4, Eosinophils (%) (Auto) 1.0, Basophils (%) (Auto ) 0.8, Erythrocyte Sedimentation Rate 19, Activated Partial Thromboplast Time 26 , Sodium Level 142, Potassium Level 3.4L, Chloride Level 108H, Carbon Dioxide Level 26, Anion Gap 8, Blood Urea Nitrogen 10, Creatinine 1.0, Estimat Glomerular Filtration Rate > 60, Glucose Level 98, Calcium Level 8.8, Phosphorus Level 2.3L, Magnesium Level 1.8, Total Bilirubin 0.4, Aspartate Amino Transf (AST/SGOT) 18, Alanine Aminotransferase (ALT/SGPT) 28, Alkaline Phosphatase 39L, C-Reactive Protein, Quantitative 0.8, Total Protein 6.4, Albumin 3.5, Globulin 2.9, Albumin/Globulin Ratio 1.2, Amylase Level 66, Lipase 197 Current Medications Medications (Trade) Dose Ordered Sig/Dasia Route PRN Reason Start Time Stop Time Status Last Admin Dose Admin Acetaminophen (Tylenol) 650 mg Q4H PRN ORAL fever 06/29/20 16:30 07/28/20 00:29 Ceftriaxone Sodium 1 gm/ Dextrose 55 ml @ 110 mls/hr Q24H IVPB 06/29/20 22:00 07/05/20 21:59 Dextrose (Dextrose 50%) 25 ml Q30M PRN IV Hypoglycemia 06/29/20 16:00 09/26/20 00:29 Dextrose (Dextrose 50%) 50 ml Q30M PRN IV Hypoglycemia 06/29/20 16:00 09/26/20 00:29 Dextrose/Sodium Chloride 1,000 ml @ 75 mls/hr [id number] IV 06/29/20 16:00 07/28/20 00:59 06/29/20 17:31 Diphenhydramine HCl (Benadryl) 25 mg Q6H PRN ORAL Itching/Pruritis 06/29/20 18:30 07/28/20 00:29 Famotidine (Pepcid) 20 mg DAILY ORAL 06/30/20 09:00 09/27/20 13:29 Heparin Sodium (Porcine) (Heparin 5000 units/ml) 5,000 units EVERY 12 HOURS SUBQ 06/29/20 21:00 08/12/20 08:59 Metoclopramide HCl (Reglan) 10 mg Q6H PRN IVP servere nauasea 06/29/20 16:00 07/28/20 15:59 Metronidazole 100 ml @ 100 mls/hr Q8HR IVPB 06/29/20 22:00 07/05/20 22:59 Nitroglycerin (Ntg) 0.4 mg Q5M X 3 DOSES PRN SL Prn Chest Pain 06/29/20 16:00 07/28/20 00:29 Ondansetron HCl (Zofran) 4 mg Q6H PRN IVP Nausea & Vomiting 06/29/20 16:00 07/28/20 15:59 Pantoprazole (Protonix) 40 mg DAILY IV 06/30/20 09:00 07/28/20 08:59 Polyethylene Glycol (Miralax) 17 gm HSPRN PRN ORAL Constipation 06/29/20 16:00 07/29/20 15:59 Promethazine HCl (Phenergan) 25 mg Q6H PRN IM Refractory N/V 06/29/20 16:00 07/04/20 15:59 Temazepam (Restoril) 15 mg HSPRN PRN ORAL Insomnia 06/29/20 16:00 07/06/20 15:59 Assessment/Plan Problems: (1) Intractable vomiting with nausea (2) Pelvic pain Assessment/Plan IV fluids clear liquids symptomatic treatment all testing was negative f/u GI recommendation Chasidy Pike MD Jun 29, 2020 17:52
--- NOTE | 2020-06-29 18:25 | NUR ---
NURSE NOTES: Received orders from kofi Barragan to start patient on simethicone 80mg PO PRN q6hrs as per pharmacy recommendations. Orders noted and carried out.
[2020-06-29] MEDS: Simethicone 80mg tab ORAL PRN (18:36)
--- NOTE | 2020-06-29 19:12 | NUR ---
NURSE HAND-OFF: Important Events on Shift: Patient transfered from [facility] Patient Status: Stable Diet: Clear Liquids Pending Orders: Still for urine collection for urine drug screen Pending Results/Labs: None Pending MD notification:None Latest Vital Signs: Temperature 97.8 , Pulse 72 , B/P 117 /70 , Respiratory Rate 20 , O2 SAT 98 , Room Air, O2 Flow Rate . Vital Sign Comment: Latest Mayer Fall Score: 20 Fall Risk: Low Risk Safety Measures: Call light Within Reach, Bed Alarm Zone 1, Side Rails Side Rails x2, Bed position Low and Locked. Fall Precautions: Patient Fall Education Report given to Bobby ISIDRO.
--- NOTE | 2020-06-29 19:25 | NUR ---
NURSE NOTES: Receive a report from Stacy. Round is done. Pt is awake and alert. No acute distress noted. No Nausea/vomiting noted. Pt started to eat regular diet and thinks it seems to too heavy for her. After eating, discomfort level increased by pt's remark. Advise to downgrade diet to soft diet and pt agrees. Will contact to MD to confirm diet. Call light within reach. Will continue to monitor. Pt did void in the hat to collect for urine test.
--- NOTE | 2020-06-29 19:35 | NUR ---
NURSE NOTES: Urine sample sent to lab.
[2020-06-29 20:00] VITALS: BP 98/55
--- NOTE | 2020-06-29 20:10 | NUR ---
NURSE NOTES: Left a message to Dr. Pike to confirm diet. Waiting for reply. Will continue to followup. Pt states that the level of discomfort got decreased.
--- NOTE | 2020-06-29 21:20 | NUR ---
NURSE NOTES: Receive an order from Dr. Hernandes to confirm diet. Order noted and carried out. Update to pt.
[2020-06-29] MEDS: cefTRIAXone 1 GM in D5W 55 ML IVPB SCH (21:22)
[2020-06-30] VITALS: BP 122/71
--- NOTE | 2020-06-30 | NUR ---
NURSE NOTES: Pt is awake and alert. No acute distress noted. Verbalizes her own needs clearly. Ambulatory. Complain for gas discomfort and very little gas pass. Given Simethicone 1t prn as ordered and provide hot tea by pt's request.
--- NOTE | 2020-06-30 00:20 | NUR ---
NURSE NOTES: Pt is feeling gas discomfort that moves upto left lower chest area without radiation. States that can't burp it but feeling pain, 5/10. No dizziness noted. VS-143/82-58 spo2 98% in RA. Encourage to ambulate and will continue to monitor.
--- NOTE | 2020-06-30 00:40 | NUR ---
NURSE NOTES: Pt ambulates the unit steady gait. When she gets out of bed, she burps. No dizziness noted. After going back to bed, she feels much better. Offer for stool softer but refuses it. Will continue to monitor.
--- NOTE | 2020-06-30 02:00 | NUR ---
NURSE NOTES: Pt is easily aroused. No acute distress noted. Pt is feeling gas bubbling inside but not quite passing gas yet. States that decreased discomfort. Encourage to sleep and ambulate in the morning. Will continue to monitor.
[2020-06-30 04:45] VITALS: BP 107/68
[2020-06-30 05:41] LABS: BASOPHILS % (AUTO) 0.7 % (0.0-2.0); HEMATOCRIT 37.1 % (37.0-47.0); HEMOGLOBIN 11.9 G/DL (12.0-16.0); LYMPHOCYTES % (AUTO) 46.2 % (20.0-45.0); MEAN CORPUSCULAR VOLUME 84 FL (80-99); MONOCYTES % (AUTO) 7.6 % (1.0-10.0); NEUTROPHILS % (AUTO) 43.4 % (45.0-75.0); PLATELET COUNT 210 K/UL (150-450); RED BLOOD COUNT 4.43 M/UL (4.20-5.40); RED CELL DISTRIBUTION WIDTH 13.5 % (11.6-14.8); WHITE BLOOD COUNT 6.4 K/UL (4.8-10.8)
[2020-06-30 05:48] LABS: ALANINE AMINOTRANSFERASE 31 U/L (12-78); ALBUMIN 3.4 G/DL (3.4-5.0); ALKALINE PHOSPHATASE 44 U/L (46-116); ANION GAP 7 mmol/L (5-15); ASPARTATE AMINO TRANSFERASE 19 U/L (15-37); BILIRUBIN,TOTAL 0.2 MG/DL (0.2-1.0); BLOOD UREA NITROGEN 9 mg/dL (7-18); CARBON DIOXIDE 27 MMOL/L (21-32); CHLORIDE 106 MMOL/L (98-107); CREATININE 1.1 MG/DL (0.55-1.30); POTASSIUM 3.3 MMOL/L (3.5-5.1); SODIUM 140 MMOL/L (136-145)
[2020-06-30] MEDS: D5 1/2NS 1,000 ML IV SCH (05:48)
--- NOTE | 2020-06-30 06:00 | NUR ---
NURSE NOTES: No acute distress noted. Will continue to monitor.
--- NOTE | 2020-06-30 07:30 | NUR ---
NURSE HAND-OFF: Important Events on Shift:[Gas Discomfort] Patient Status: [feeling better] Diet: [soft diet-vegeterian] Pending Orders: [na] Pending Results/Labs:[completed] Pending MD notification:[na] Latest Vital Signs: Temperature 98.6 , Pulse 59 , B/P 107 /68 , Respiratory Rate 18 , O2 SAT 97 , Room Air, O2 Flow Rate . Vital Sign Comment: [] Latest Mayer Fall Score: 20 Fall Risk: Low Risk Safety Measures: Call light Within Reach, Bed Alarm Zone 1, Side Rails Side Rails x2, Bed position Low and Locked. Fall Precautions: Yellow Gown Door Sign Patient Fall Education Report given to [DWAINE Betancourt]. Round is done. Pt is asleep.
--- NOTE | 2020-06-30 07:45 | NUR ---
NURSE NOTES: Receive a report from DWAINE Farrell. Pt asleep in bed in RA. Breathing even and unlabored. No acute distress noted. IV on left wrist intact and patent running IVF as ordered. Per night nurse pt unable to sleep until 5am. Bed low position, locked. Siderails up x2. Call light within reach. Will continue to monitor.
[2020-06-30] MEDS ORDERED: Tubing IV Secondary IV ONE (08:29)
[2020-06-30] MEDS ORDERED: D5 1/2NS 1000ml IV ONE (08:29)
--- NOTE | 2020-06-30 08:50 | General Progress Note ---
Assessment/Plan Problem List: (1) Nausea & vomiting ICD Codes: R11.2 - Nausea with vomiting, unspecified SNOMED: 35672101 (2) Gastroenteritis ICD Codes: K52.9 - Noninfective gastroenteritis and colitis, unspecified SNOMED: 34634995 (3) Pelvic pain ICD Codes: R10.2 - Pelvic and perineal pain SNOMED: 89760818 (4) Intractable vomiting with nausea ICD Codes: R11.2 - Nausea with vomiting, unspecified SNOMED: 997965560 Assessment/Plan: no elevated lipase no elevated LFTS neg abd and pelvic us positive for THC>>> Cannabinoid hyperemesis syndrome consider EGD if needed Subjective ROS Limited/Unobtainable: Yes Allergies: Coded Allergies: No Known Allergies (Unverified , 05/31/20) Objective Last 24 Hour Vital Signs Date Time Temp Pulse Resp B/P (MAP) Pulse Ox O2 Delivery O2 Flow Rate FiO2 06/30/20 04:45 98.6 59 18 107/68 (81) 97 06/30/20 00:00 98.9 59 20 122/71 (88) 97 06/29/20 21:00 Room Air 06/29/20 20:00 97.8 54 20 98/55 (69) 98 06/29/20 16:00 97.8 72 20 117/70 (86) 98 06/29/20 12:00 55 06/29/20 12:00 97.9 58 20 114/77 (89) 99 06/29/20 09:00 Room Air Intake and Output 06/29/20 06/30/20 19:00 07:00 Intake Total 240 ml 850 ml Balance 240 ml 850 ml Intake Oral 240 ml 250 ml IV Total 600 ml # Voids 3 3 Laboratory Tests 06/29/20 19:00: Urine Opiates Screen Negative, Urine Barbiturates Screen Negative, Phencyclidine (PCP) Screen Negative, Urine Amphetamines Screen Negative, Urine Benzodiazepines Screen Negative, Urine Cocaine Screen Negative, Urine Marijuana (THC) Screen PositiveH 06/30/20 04:40: White Blood Count 6.4, Red Blood Count 4.43, Hemoglobin 11.9L, Hematocrit 37.1, Mean Corpuscular Volume 84, Mean Corpuscular Hemoglobin 26.9L, Mean Corpuscular Hemoglobin Concent 32.1, Red Cell Distribution Width 13.5, Platelet Count 210, Mean Platelet Volume 8.2, Neutrophils (%) (Auto) 43.4L, Lymphocytes (%) (Auto) 46.2H, Monocytes (%) (Auto) 7.6, Eosinophils (%) (Auto) 2.0, Basophils (%) (Auto ) 0.7, Sodium Level 140, Potassium Level 3.3L, Chloride Level 106, Carbon Dioxide Level 27, Anion Gap 7, Blood Urea Nitrogen 9, Creatinine 1.1, Estimat Glomerular Filtration Rate > 60, Glucose Level 103, Calcium Level 9.0, Total Bilirubin 0.2, Aspartate Amino Transf (AST/SGOT) 19, Alanine Aminotransferase ( ALT/SGPT) 31, Alkaline Phosphatase 44L, Total Protein 6.8, Albumin 3.4, Globulin 3.4, Albumin/Globulin Ratio 1.0 Height (Feet): 5 Height (Inches): 3.00 Weight (Pounds): 249 General Appearance: alert EENT: normal ENT inspection Neck: supple Cardiovascular: normal rate Respiratory/Chest: decreased breath sounds Abdomen: normal bowel sounds, non tender, soft Extremities: non-tender Jose Luis Hernandes MD Jun 30, 2020 08:50
[2020-06-30] MEDS: Pantoprazole Inj IV SCH (09:00)
[2020-06-30] MEDS: Heparin 5000 units/ml inj SUBQ SCH ×2 (09:00→21:00)
[2020-06-30 12:00] VITALS: BP 114/78
--- NOTE | 2020-06-30 13:14 | NUR ---
CASE MANAGEMENT:REVIEW 06/29/2020 SI: INTRACTABLE VOMITING. PELVIC PAIN 99.0 54 20 98/55 98% ON RA K+ 3.4 PHOS 2.3 + MARIJUANA IS: IV ROCEPHIN QD IV FLAGYL TID IV D5/NS @75ML/HR \: 3E MED SURG UNIT PLAN: DC CENTRAL LINE CASE MANAGEMENT:REVIEW 06/30/2020 SI: INTRACTABLE VOMITING. PELVIC PAIN 98.6 57 18 114/78 100% ON RA K+3.3 IS: IV ROCEPHIN QD IV FLAGYL TID IV D5/NS @75ML/HR \: 3E MED SURG UNIT DCP: HOME WHEN STAB PLAN: START ON SOFT DIET
--- NOTE | 2020-06-30 13:23 | NUR ---
*-* INSURANCE *-* UPDATED CLINICALS AND REVIEWS HAVE BEEN FAXED TO: [facility] SONJA CHICAS T: [phone] F: [phone] INSURANCE TELEPHONE [phone] [id number]
[2020-06-30] MEDS ORDERED: CARAFATE1 GM/10 M1 ORAL (14:08)
--- NOTE | 2020-06-30 14:19 | Pulmonology Progress Note ---
Subjective ROS Limited/Unobtainable: No Constitutional: Reports: no symptoms HEENT: Repors: no symptoms Allergies: Coded Allergies: No Known Allergies (Unverified , 05/31/20) Objective Last 24 Hour Vital Signs Date Time Temp Pulse Resp B/P (MAP) Pulse Ox O2 Delivery O2 Flow Rate FiO2 06/30/20 12:00 98.6 57 18 114/78 (90) 100 06/30/20 09:00 Room Air 06/30/20 04:45 98.6 59 18 107/68 (81) 97 06/30/20 00:00 98.9 59 20 122/71 (88) 97 06/29/20 21:00 Room Air 06/29/20 20:00 97.8 54 20 98/55 (69) 98 06/29/20 16:00 97.8 72 20 117/70 (86) 98 Intake and Output 06/29/20 06/30/20 19:00 07:00 Intake Total 240 ml 850 ml Balance 240 ml 850 ml Intake Oral 240 ml 250 ml IV Total 600 ml # Voids 3 3 General Appearance: WD/WN HEENT: normocephalic, atraumatic Respiratory: chest wall non-tender, normal breath sounds Cardiovascular: normal peripheral pulses, regular rhythm Abdomen: normal bowel sounds, soft, non tender Genitourinary: normal external genitalia Skin: no rash 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, abnormal gait, alert Laboratory Tests 06/29/20 19:00: Urine Opiates Screen Negative, Urine Barbiturates Screen Negative, Phencyclidine (PCP) Screen Negative, Urine Amphetamines Screen Negative, Urine Benzodiazepines Screen Negative, Urine Cocaine Screen Negative, Urine Marijuana (THC) Screen PositiveH 06/30/20 04:40: White Blood Count 6.4, Red Blood Count 4.43, Hemoglobin 11.9L, Hematocrit 37.1, Mean Corpuscular Volume 84, Mean Corpuscular Hemoglobin 26.9L, Mean Corpuscular Hemoglobin Concent 32.1, Red Cell Distribution Width 13.5, Platelet Count 210, Mean Platelet Volume 8.2, Neutrophils (%) (Auto) 43.4L, Lymphocytes (%) (Auto) 46.2H, Monocytes (%) (Auto) 7.6, Eosinophils (%) (Auto) 2.0, Basophils (%) (Auto ) 0.7, Sodium Level 140, Potassium Level 3.3L, Chloride Level 106, Carbon Dioxide Level 27, Anion Gap 7, Blood Urea Nitrogen 9, Creatinine 1.1, Estimat Glomerular Filtration Rate > 60, Glucose Level 103, Calcium Level 9.0, Total Bilirubin 0.2, Aspartate Amino Transf (AST/SGOT) 19, Alanine Aminotransferase ( ALT/SGPT) 31, Alkaline Phosphatase 44L, Total Protein 6.8, Albumin 3.4, Globulin 3.4, Albumin/Globulin Ratio 1.0 Current Medications Medications (Trade) Dose Ordered Sig/Dasia Route PRN Reason Start Time Stop Time Status Last Admin Dose Admin Acetaminophen (Tylenol) 650 mg Q4H PRN ORAL fever 06/29/20 16:30 07/28/20 00:29 Ceftriaxone Sodium 1 gm/ Dextrose 55 ml @ 110 mls/hr Q24H IVPB 06/29/20 22:00 07/05/20 21:59 06/29/20 21:22 Dextrose (Dextrose 50%) 25 ml Q30M PRN IV Hypoglycemia 06/29/20 16:00 09/26/20 00:29 Dextrose (Dextrose 50%) 50 ml Q30M PRN IV Hypoglycemia 06/29/20 16:00 09/26/20 00:29 Dextrose/Sodium Chloride 1,000 ml @ 75 mls/hr [id number] IV 06/29/20 16:00 07/28/20 00:59 06/30/20 05:48 Diphenhydramine HCl (Benadryl) 25 mg Q6H PRN ORAL Itching/Pruritis 06/29/20 18:30 07/28/20 00:29 Heparin Sodium (Porcine) (Heparin 5000 units/ml) 5,000 units EVERY 12 HOURS SUBQ 06/29/20 21:00 08/12/20 08:59 06/29/20 21:24 Metoclopramide HCl (Reglan) 10 mg Q6H PRN IVP servere nauasea 06/29/20 16:00 07/28/20 15:59 Metronidazole 100 ml @ 100 mls/hr Q8HR IVPB 06/29/20 22:00 07/05/20 22:59 06/30/20 13:47 Nitroglycerin (Ntg) 0.4 mg Q5M X 3 DOSES PRN SL Prn Chest Pain 06/29/20 16:00 07/28/20 00:29 Ondansetron HCl (Zofran) 4 mg Q6H PRN IVP Nausea & Vomiting 06/29/20 16:00 07/28/20 15:59 Pantoprazole (Protonix) 40 mg DAILY IV 06/30/20 09:00 07/28/20 08:59 Polyethylene Glycol (Miralax) 17 gm HSPRN PRN ORAL Constipation 06/29/20 16:00 07/29/20 15:59 Promethazine HCl (Phenergan) 25 mg Q6H PRN IM Refractory N/V 06/29/20 16:00 07/04/20 15:59 Simethicone (Mylicon) 80 mg EVERY 6 HOURS PRN ORAL Abdominal cramps 06/29/20 18:30 09/27/20 18:29 06/30/20 00:00 Temazepam (Restoril) 15 mg HSPRN PRN ORAL Insomnia 06/29/20 16:00 07/06/20 15:59 Assessment/Plan Problems: (1) Intractable vomiting with nausea (2) Pelvic pain Assessment/Plan getting better tolerating diet symptomatic treatment all testing was negative f/u GI recommendation dc home with Carafate and Chasidy Arrington MD Jun 30, 2020 14:19
--- NOTE | 2020-06-30 14:49 | Internal Med Progress Note ---
Subjective Date of Service: Jun 30, 2020 Physician Name Elroy Tello Attending Physician Gerardo Quijano MD Current Medications Medications (Trade) Dose Ordered Sig/Dasia Route PRN Reason Start Time Stop Time Status Last Admin Dose Admin Acetaminophen (Tylenol) 650 mg Q4H PRN ORAL fever 06/29/20 16:30 07/28/20 00:29 Ceftriaxone Sodium 1 gm/ Dextrose 55 ml @ 110 mls/hr Q24H IVPB 06/29/20 22:00 07/05/20 21:59 06/29/20 21:22 Dextrose (Dextrose 50%) 25 ml Q30M PRN IV Hypoglycemia 06/29/20 16:00 09/26/20 00:29 Dextrose (Dextrose 50%) 50 ml Q30M PRN IV Hypoglycemia 06/29/20 16:00 09/26/20 00:29 Dextrose/Sodium Chloride 1,000 ml @ 75 mls/hr [id number] IV 06/29/20 16:00 07/28/20 00:59 06/30/20 05:48 Diphenhydramine HCl (Benadryl) 25 mg Q6H PRN ORAL Itching/Pruritis 06/29/20 18:30 07/28/20 00:29 Heparin Sodium (Porcine) (Heparin 5000 units/ml) 5,000 units EVERY 12 HOURS SUBQ 06/29/20 21:00 08/12/20 08:59 06/29/20 21:24 Metoclopramide HCl (Reglan) 10 mg Q6H PRN IVP servere nauasea 06/29/20 16:00 07/28/20 15:59 Metronidazole 100 ml @ 100 mls/hr Q8HR IVPB 06/29/20 22:00 07/05/20 22:59 06/30/20 13:47 Nitroglycerin (Ntg) 0.4 mg Q5M X 3 DOSES PRN SL Prn Chest Pain 06/29/20 16:00 07/28/20 00:29 Ondansetron HCl (Zofran) 4 mg Q6H PRN IVP Nausea & Vomiting 06/29/20 16:00 07/28/20 15:59 Pantoprazole (Protonix) 40 mg DAILY IV 06/30/20 09:00 07/28/20 08:59 Polyethylene Glycol (Miralax) 17 gm HSPRN PRN ORAL Constipation 06/29/20 16:00 07/29/20 15:59 Promethazine HCl (Phenergan) 25 mg Q6H PRN IM Refractory N/V 06/29/20 16:00 07/04/20 15:59 Simethicone (Mylicon) 80 mg EVERY 6 HOURS PRN ORAL Abdominal cramps 06/29/20 18:30 09/27/20 18:29 06/30/20 00:00 Sucralfate (Carafate) 1 gm FOUR TIMES A DAY ORAL 06/30/20 18:00 09/28/20 17:59 Temazepam (Restoril) 15 mg HSPRN PRN ORAL Insomnia 06/29/20 16:00 07/06/20 15:59 Allergies: Coded Allergies: No Known Allergies (Unverified , 05/31/20) ROS Limited/Unobtainable: No Constitutional: Reports: no symptoms HEENT: Reports: no symptoms Cardiovascular: Reports: no symptoms Respiratory: Reports: no symptoms Gastrointestinal/Abdominal: Reports: nausea, vomiting Genitourinary: Reports: no symptoms Neurologic/Psychiatric: Reports: no symptoms Subjective 30YO F admitted with abdominal pain, nausea and vomiting. Now Gastroenteritis/ colitis. Cover for Int Kvng-Dr Quijano Objective Last Vital Signs Date Time Temp Pulse Resp B/P (MAP) Pulse Ox O2 Delivery O2 Flow Rate FiO2 06/30/20 12:00 98.6 57 18 114/78 (90) 100 06/30/20 09:00 Room Air Laboratory Tests Test 06/29/20 19:00 06/30/20 04:40 Urine Opiates Screen Negative (NEGATIVE) Urine Barbiturates Screen Negative (NEGATIVE) Phencyclidine (PCP) Screen Negative (NEGATIVE) Urine Amphetamines Screen Negative (NEGATIVE) Urine Benzodiazepines Screen Negative (NEGATIVE) Urine Cocaine Screen Negative (NEGATIVE) Urine Marijuana (THC) Screen Positive (NEGATIVE) H White Blood Count 6.4 K/UL (4.8-10.8) Red Blood Count 4.43 M/UL (4.20-5.40) Hemoglobin 11.9 G/DL (12.0-16.0) L Hematocrit 37.1 % (37.0-47.0) Mean Corpuscular Volume 84 FL (80-99) Mean Corpuscular Hemoglobin 26.9 PG (27.0-31.0) L Mean Corpuscular Hemoglobin Concent 32.1 G/DL (32.0-36.0) Red Cell Distribution Width 13.5 % (11.6-14.8) Platelet Count 210 K/UL (150-450) Mean Platelet Volume 8.2 FL (6.5-10.1) Neutrophils (%) (Auto) 43.4 % (45.0-75.0) L Lymphocytes (%) (Auto) 46.2 % (20.0-45.0) H Monocytes (%) (Auto) 7.6 % (1.0-10.0) Eosinophils (%) (Auto) 2.0 % (0.0-3.0) Basophils (%) (Auto) 0.7 % (0.0-2.0) Sodium Level 140 MMOL/L (136-145) Potassium Level 3.3 MMOL/L (3.5-5.1) L Chloride Level 106 MMOL/L (98-107) Carbon Dioxide Level 27 MMOL/L (21-32) Anion Gap 7 mmol/L (5-15) Blood Urea Nitrogen 9 mg/dL (7-18) Creatinine 1.1 MG/DL (0.55-1.30) Estimat Glomerular Filtration Rate > 60 mL/min (>60) Glucose Level 103 MG/DL (74-106) Calcium Level 9.0 MG/DL (8.5-10.1) Total Bilirubin 0.2 MG/DL (0.2-1.0) Aspartate Amino Transf (AST/SGOT) 19 U/L (15-37) Alanine Aminotransferase (ALT/SGPT) 31 U/L (12-78) Alkaline Phosphatase 44 U/L (46-116) L Total Protein 6.8 G/DL (6.4-8.2) Albumin 3.4 G/DL (3.4-5.0) Globulin 3.4 g/dL Albumin/Globulin Ratio 1.0 (1.0-2.7) Intake and Output 06/29/20 06/30/20 19:00 07:00 Intake Total 240 ml 850 ml Balance 240 ml 850 ml Intake Oral 240 ml 250 ml IV Total 600 ml # Voids 3 3 Objective PHYSICAL EXAMINATION: GENERAL: The patient is awake, responsive, no acute distress. HEENT: Head and neck examination, pupils are equal and reactive to light. Extraocular movements intact. Neck was supple. No JVD. LUNGS: Good air entry. No wheezing or rales. HEART: S1, S2. Regular rhythm. Distant heart sounds. No murmur or gallop. ABDOMEN: Soft, nondistended. Morbidly obese. Tenderness in the suprapubic area. No rebound tenderness. No fluid shift. EXTREMITIES: No cyanosis, clubbing, or edema. NEUROLOGIC: Cranial nerves II through XII grossly normal. Motor is 5/5 in all extremities. Gait is intact. RECTAL/GENITOURINARY: Refused and deferred. PSYCHIATRIC: Mood and affect is intact. Assessment/Plan Assessment/Plan ASSESSMENT: 1. Intractable nausea and vomiting, possible due to colitis, gastroenteritis. 2. Pelvic pain. 3. Morbid obesity. 4. Microhematuria. 5. Cannabinoid hyperemesis syndrome PLAN: 1. antibiotics =Rocephin and Flagyl. 2. Protonix 40 mg daily 3. Tolerating clear liquid diet, advance as tolerated. 4. Zofran p.r.n. 5. Gastroenterology consultation = Dr Cecilio Tello,Elroy PADRON Jun 30, 2020 14:49
--- NOTE | 2020-06-30 15:33 | NUR ---
NURSE NOTES: Pt seen by Dr. Tello. Dr. Tello changed the discharge date to tomorrow. Order carried out. Pt made aware and agreed.
[2020-06-30 16:00] VITALS: BP 115/75
[2020-06-30] MEDS: D5 1/2NS w/KCl 20mEq 1,000 ML IV SCH (17:13)
[2020-06-30] MEDS: Sucralfate 1gm tab ORAL SCH ×3 (17:13→21:04)
--- NOTE | 2020-06-30 19:20 | NUR ---
NURSE NOTES: Receive a report from DWAINE Betancourt. Pt is awake and alert. No acute distress noted. Still noted gas discomfort. Encourage to ambulate. Pt wants to know GI DrRebekah opinion before discharge and is willing to do MNNPO just in case for preparing for any GI related test tomorrow. Will continue to follow up and endorse AM shift and CN made aware.
--- NOTE | 2020-06-30 19:49 | NUR ---
NURSE HAND-OFF: Important Events on Shift:NA Patient Status: Diet: Soft diet Pending Orders: Pending Results/Labs: Pending MD notification: Latest Vital Signs: Temperature 98.5 , Pulse 59 , B/P 115 /75 , Respiratory Rate 18 , O2 SAT 99 , Room Air, O2 Flow Rate . Vital Sign Comment: Latest Mayer Fall Score: 20 Fall Risk: Low Risk Safety Measures: Call light Within Reach, Bed Alarm Zone 1, Side Rails Side Rails x2, Bed position Low and Locked. Fall Precautions: Yellow Gown Door Sign Patient Fall Education Report given to DWAINE Farrell.
[2020-06-30 20:00] VITALS: BP 130/88
--- NOTE | 2020-06-30 21:00 | NUR ---
NURSE NOTES: Given Simethicone 1t po prn for gas discomfort. Will continue to monitor.
[2020-06-30] MEDS: Simethicone 80mg tab ORAL PRN ×2 (21:04)
[2020-06-30] MEDS: cefTRIAXone 1 GM in D5W 55 ML IVPB SCH (21:40)
--- NOTE | 2020-06-30 23:45 | NUR ---
NURSE NOTES: After taking medication, she had one time of BM and had ambulation in the unit. She states that she is feeling more comfortable. Taking prn a sleeping pill as ordered. Will continue to monitor.
[2020-07-01] VITALS: BP 122/72
[2020-07-01] MEDS: D5 1/2NS w/KCl 20mEq 1,000 ML IV SCH (05:34)
[2020-07-01 05:43] VITALS: BP 103/64
--- NOTE | 2020-07-01 06:04 | NUR ---
NURSE HAND-OFF: Important Events on Shift:[] Patient Status: [] Diet: [] Pending Orders: [] Pending Results/Labs:[] Pending MD notification:[] Latest Vital Signs: Temperature 99.5 , Pulse 55 , B/P 103 /64 , Respiratory Rate 18 , O2 SAT 98 , Room Air, O2 Flow Rate . Vital Sign Comment: [] Latest Mayer Fall Score: 20 Fall Risk: Low Risk Safety Measures: Call light Within Reach, Bed Alarm Zone 1, Side Rails Side Rails x2, Bed position Low and Locked. Fall Precautions: Yellow Gown Door Sign Patient Fall Education Report given to [].
--- NOTE | 2020-07-01 07:07 | NUR ---
NURSE HAND-OFF: Important Events on Shift:[improving gas discomfort] Patient Status: [] Diet: [soft diet--> verbal NPO by pt's request] Pending Orders: [] Pending Results/Labs:[CBC, BMP] Pending MD notification:[] Latest Vital Signs: Temperature 99.5 , Pulse 55 , B/P 103 /64 , Respiratory Rate 18 , O2 SAT 98 , Room Air, O2 Flow Rate . Vital Sign Comment: [] Latest Mayer Fall Score: 20 Fall Risk: Low Risk Safety Measures: Call light Within Reach, Bed Alarm Zone 1, Side Rails Side Rails x2, Bed position Low and Locked. Fall Precautions: Yellow Gown Door Sign Patient Fall Education Report given to [DWAINE Betancourt], Pt is asleep without acute distress. Breakfast tray is on hold by pt's request. Endorse to AM shift Nurse.
[2020-07-01 07:15] LABS: ANION GAP 9 mmol/L (5-15); BLOOD UREA NITROGEN 6 mg/dL (7-18); CALCIUM 8.9 MG/DL (8.5-10.1); CARBON DIOXIDE 24 MMOL/L (21-32); CHLORIDE 107 MMOL/L (98-107); CREATININE 0.8 MG/DL (0.55-1.30); POTASSIUM 3.2 MMOL/L (3.5-5.1); SODIUM 140 MMOL/L (136-145)
[2020-07-01 07:18] LABS: EOSINOPHILS % (AUTO) 2.9 % (0.0-3.0); HEMATOCRIT 36.8 % (37.0-47.0); HEMOGLOBIN 11.9 G/DL (12.0-16.0); LYMPHOCYTES % (AUTO) 40.6 % (20.0-45.0); MEAN CORPUSCULAR VOLUME 83 FL (80-99); MONOCYTES % (AUTO) 8.3 % (1.0-10.0); NEUTROPHILS % (AUTO) 47.3 % (45.0-75.0); PLATELET COUNT 200 K/UL (150-450); RED BLOOD COUNT 4.42 M/UL (4.20-5.40); RED CELL DISTRIBUTION WIDTH 13.7 % (11.6-14.8); WHITE BLOOD COUNT 5.3 K/UL (4.8-10.8)
--- NOTE | 2020-07-01 07:29 | NUR ---
NURSE NOTES: Received report from DWAINE Farrell. Pt asleep in bed, RA, No acute distress noted. Per night nurse pt wanted to hear from Dr. Hernandes if she needs EGD procedure. Pt wants to hold breakfast in case she might have EGD today. Will follow up. IV intact and patent running IVF as ordered. Bed in low position, locked. Call light within reach. Will continue to follow up.
--- NOTE | 2020-07-01 07:57 | General Progress Note ---
Assessment/Plan Problem List: (1) Nausea & vomiting ICD Codes: R11.2 - Nausea with vomiting, unspecified SNOMED: 18551409 (2) Gastroenteritis ICD Codes: K52.9 - Noninfective gastroenteritis and colitis, unspecified SNOMED: 46307891 (3) Pelvic pain ICD Codes: R10.2 - Pelvic and perineal pain SNOMED: 10498229 (4) Intractable vomiting with nausea ICD Codes: R11.2 - Nausea with vomiting, unspecified SNOMED: 788621142 Assessment/Plan: no elevated lipase no elevated LFTS neg abd and pelvic us positive for THC>>> Cannabinoid hyperemesis syndrome ok to dc gi stand point Subjective ROS Limited/Unobtainable: Yes Allergies: Coded Allergies: No Known Allergies (Unverified , 05/31/20) Objective Last 24 Hour Vital Signs Date Time Temp Pulse Resp B/P (MAP) Pulse Ox O2 Delivery O2 Flow Rate FiO2 07/01/20 05:43 99.5 55 18 103/64 (77) 98 07/01/20 00:00 99.0 53 18 122/72 (89) 98 06/30/20 21:00 Room Air 06/30/20 20:00 98.8 61 18 130/88 (102) 99 06/30/20 16:00 98.5 59 18 115/75 (88) 99 06/30/20 12:00 98.6 57 18 114/78 (90) 100 06/30/20 09:00 Room Air Intake and Output 06/30/20 07/01/20 19:00 07:00 Intake Total 960 ml Balance 960 ml Intake Oral 400 ml IV Total 560 ml # Voids 4 6 # Bowel Movements 1 Laboratory Tests 07/01/20 05:50: White Blood Count 5.3, Red Blood Count 4.42, Hemoglobin 11.9L, Hematocrit 36.8L , Mean Corpuscular Volume 83, Mean Corpuscular Hemoglobin 26.8L, Mean Corpuscular Hemoglobin Concent 32.2, Red Cell Distribution Width 13.7, Platelet Count 200, Mean Platelet Volume 8.2, Neutrophils (%) (Auto) 47.3, Lymphocytes (% ) (Auto) 40.6, Monocytes (%) (Auto) 8.3, Eosinophils (%) (Auto) 2.9, Basophils ( %) (Auto) 1.0, Sodium Level 140, Potassium Level 3.2L, Chloride Level 107, Carbon Dioxide Level 24, Anion Gap 9, Blood Urea Nitrogen 6L, Creatinine 0.8, Estimat Glomerular Filtration Rate > 60, Glucose Level 101, Calcium Level 8.9 Height (Feet): 5 Height (Inches): 3.00 Weight (Pounds): 249 General Appearance: alert EENT: PERRL/EOMI Neck: supple Cardiovascular: normal rate Respiratory/Chest: lungs clear Abdomen: normal bowel sounds, non tender, soft Extremities: non-tender Jose Luis Hernandes MD Jul 01, 2020 07:57
[2020-07-01 08:00] VITALS: BP 91/48
[2020-07-01] MEDS: Pantoprazole Inj IV SCH (08:19)
[2020-07-01] MEDS: Sucralfate 1gm tab ORAL SCH (08:19)
[2020-07-01] MEDS: Heparin 5000 units/ml inj SUBQ SCH (08:26)
--- NOTE | 2020-07-01 10:59 | NUR ---
NURSE NOTES: Pt seen by Dr. Hernandes. Clear to discharge GI standpoint. However pt refused to discharge and claimed that she did not hear from doctor the explanation why EGD not needed. Per Dr. Hernandes, pt's vomiting is due to marijuana that she is using. Labs and US looks normal, No indication for EGD at this time. Relayed the message to pt. Pt still refused to discharge because she wanted to talk to GI doctor in person. Nursing automobile leasing supervisor aware and spoke to pt regarding pt's concern. Addendum: 07/01/20 at 1221 by Serafin Guzmán RN Pt in stable condition. Based on pt's concern. provided diagnosis education, discharge instruction, Rx & medication education, and risks of marihuana use. Pt verbally understanding and agreed to discharge. All belongings were accounted for. IV and ID band removed. Pt said she will take a taxi by herself. Addendum: 07/01/20 at 1236 by Serafin Guzmán RN Pt was escorted to downstair by nurse. pt took a taxi
--- NOTE | 2020-07-01 11:58 | Pulmonology Progress Note ---
Subjective ROS Limited/Unobtainable: Yes Constitutional: Reports: no symptoms HEENT: Repors: no symptoms Allergies: Coded Allergies: No Known Allergies (Unverified , 05/31/20) Objective Last 24 Hour Vital Signs Date Time Temp Pulse Resp B/P (MAP) Pulse Ox O2 Delivery O2 Flow Rate FiO2 07/01/20 09:00 Room Air 07/01/20 08:00 98.1 50 18 91/48 (62) 99 07/01/20 05:43 99.5 55 18 103/64 (77) 98 07/01/20 00:00 99.0 53 18 122/72 (89) 98 06/30/20 21:00 Room Air 06/30/20 20:00 98.8 61 18 130/88 (102) 99 06/30/20 16:00 98.5 59 18 115/75 (88) 99 06/30/20 12:00 98.6 57 18 114/78 (90) 100 Intake and Output 06/30/20 07/01/20 19:00 07:00 Intake Total 960 ml Balance 960 ml Intake Oral 400 ml IV Total 560 ml # Voids 4 6 # Bowel Movements 1 General Appearance: WD/WN HEENT: normocephalic, atraumatic Respiratory: chest wall non-tender, normal breath sounds Cardiovascular: normal peripheral pulses, regular rhythm Abdomen: normal bowel sounds, soft, non tender Genitourinary: normal external genitalia Skin: no rash Neurologic: childcare provider II-XII grossly normal, abnormal gait, alert Laboratory Tests 07/01/20 05:50: White Blood Count 5.3, Red Blood Count 4.42, Hemoglobin 11.9L, Hematocrit 36.8L , Mean Corpuscular Volume 83, Mean Corpuscular Hemoglobin 26.8L, Mean Corpuscular Hemoglobin Concent 32.2, Red Cell Distribution Width 13.7, Platelet Count 200, Mean Platelet Volume 8.2, Neutrophils (%) (Auto) 47.3, Lymphocytes (% ) (Auto) 40.6, Monocytes (%) (Auto) 8.3, Eosinophils (%) (Auto) 2.9, Basophils ( %) (Auto) 1.0, Sodium Level 140, Potassium Level 3.2L, Chloride Level 107, Carbon Dioxide Level 24, Anion Gap 9, Blood Urea Nitrogen 6L, Creatinine 0.8, Estimat Glomerular Filtration Rate > 60, Glucose Level 101, Calcium Level 8.9 Current Medications Medications (Trade) Dose Ordered Sig/Dasia Route PRN Reason Start Time Stop Time Status Last Admin Dose Admin Acetaminophen (Tylenol) 650 mg Q4H PRN ORAL fever 06/29/20 16:30 07/28/20 00:29 Ceftriaxone Sodium 1 gm/ Dextrose 55 ml @ 110 mls/hr Q24H IVPB 06/29/20 22:00 07/05/20 21:59 06/30/20 21:40 Dextrose (Dextrose 50%) 25 ml Q30M PRN IV Hypoglycemia 06/29/20 16:00 09/26/20 00:29 Dextrose (Dextrose 50%) 50 ml Q30M PRN IV Hypoglycemia 06/29/20 16:00 09/26/20 00:29 Dextrose/ Electrolytes 1,000 ml @ 75 mls/hr [id number] IV 06/30/20 15:30 07/30/20 15:29 07/01/20 05:34 Diphenhydramine HCl (Benadryl) 25 mg Q6H PRN ORAL Itching/Pruritis 06/29/20 18:30 07/28/20 00:29 Heparin Sodium (Porcine) (Heparin 5000 units/ml) 5,000 units EVERY 12 HOURS SUBQ 06/29/20 21:00 08/12/20 08:59 07/01/20 08:26 Metoclopramide HCl (Reglan) 10 mg Q6H PRN IVP servere nauasea 06/29/20 16:00 07/28/20 15:59 Metronidazole 100 ml @ 100 mls/hr Q8HR IVPB 06/29/20 22:00 07/05/20 22:59 07/01/20 05:34 Nitroglycerin (Ntg) 0.4 mg Q5M X 3 DOSES PRN SL Prn Chest Pain 06/29/20 16:00 07/28/20 00:29 Ondansetron HCl (Zofran) 4 mg Q6H PRN IVP Nausea & Vomiting 06/29/20 16:00 07/28/20 15:59 Pantoprazole (Protonix) 40 mg DAILY IV 06/30/20 09:00 07/28/20 08:59 07/01/20 08:19 Polyethylene Glycol (Miralax) 17 gm HSPRN PRN ORAL Constipation 06/29/20 16:00 07/29/20 15:59 Promethazine HCl (Phenergan) 25 mg Q6H PRN IM Refractory N/V 06/29/20 16:00 07/04/20 15:59 Simethicone (Mylicon) 80 mg EVERY 6 HOURS PRN ORAL Abdominal cramps 06/29/20 18:30 09/27/20 18:29 06/30/20 21:04 Sucralfate (Carafate) 1 gm FOUR TIMES A DAY ORAL 06/30/20 18:00 09/28/20 17:59 07/01/20 08:19 Temazepam (Restoril) 15 mg HSPRN PRN ORAL Insomnia 06/29/20 16:00 07/06/20 15:59 06/30/20 23:41 Assessment/Plan Problems: (1) Intractable vomiting with nausea (2) Pelvic pain Assessment/Plan stayed one more night to be cleared by GI getting better tolerating diet symptomatic treatment all testing was negative f/u GI recommendation mi home with Rojelio and Chasidy Arrington MD Jul 01, 2020 11:58
--- NOTE | 2020-07-02 09:20 | Discharge Summary ---
Discharge Summary Discharge Summary _ DATE OF ADMISSION: 06/27/2020 DATE OF DISCHARGE: 07/01/2020 DISCHARGED BY: Dr. Quijano REASON FOR ADMISSION: 30 years old female with past medical history of cholecystectomy, recently diagnosed gastroenteritis, presented to the hospital complaining of intractable nausea and vomiting. Patient reported pain in the pelvic area , 7 out of 10 on a scale 1-10. Patient was recently hospitalized ( about a month ago ) with similar symptoms and was told about possible gastroenteritis. At that time she was prescribed Pepcid and dicyclomine. Patient reported that her symptoms improved , and she did not use these medications. At this time she had a second episode with the same symptoms. Pain reported mostly in the lower abdominal area and was associated with nausea and vomiting. No diarrhea. No fever or chills. Shortly after initial evaluation in emergency department , patient admitted with pelvic pain and intractable nausea and vomiting. Laboratory work-up was unremarkable. Urine test was negative. Urinalysis revealed no evidence of urinary tract infection. Urine toxicology screen was positive for marijuana. Chest x-ray demonstrated no acute cardiopulmonary pathology. Pelvic ultrasound revealed no acute findings. CONSULTANTS: pulmonary Dr. Pike GI specialist Dr. Hernandes [facility] COURSE: Patient admitted to medical surgical floor. Patient started on the IV hydration. GI prophylaxis provided. Patient started on empiric antibiotics Rocephin and Flagyl. Patient initially was on clear liquid diet. LFT and lipase remained stable . Abdominal ultrasound revealed no acute sonographic findings. Hepatic steatosis noted. Urine toxicology screen positive for THC. Per GI specialist , most likely patient has cannabinoid hyperemesis syndrome. Supportive care provided. Diet was slowly advanced. Antiemetic provided as needed. Carafate was added. Patient was able to tolerate diet. Pain management was addressed, and pain was controlled . Patient clinically stabilized and was ready for discharge. FINAL DIAGNOSES: Intractable nausea and vomiting, possibly due to gastroenteritis Cannabinoid hyperemesis syndrome Pelvic pain Morbid obesity Microhematuria DISCHARGE MEDICATIONS: See Medication Reconciliation list. DISCHARGE INSTRUCTIONS: Patient was discharged home. Follow-up with a primary care provider in 1 week. I have been assigned to dictate discharge summary for this account. I was not involved in the patient's management. Nevin Cota NP Jul 02, 2020 09:20
--- NOTE | 2020-07-02 16:15 | NUR ---
APPLICATION PACKAGING CONSULTANT NOTES SPOKE WITH [facility]ME FROM [facility], MADE AWARE THE PATIENT WAS DISCHARGED YESTERDAY. ALL DAYS APPROVED FOR INPATIENT STAY. ESME WILL CLOSE OUT THE CASE. ESME [phone]
== END 2020-07-01 12:33 | disposition home or self-care (01) | DRG 392 ==
LOC: EDBD 16:19 → EMR 16:49 → 2E 21:15 → EDBEDREQ 06-28 00:01 → 3E 06-29 15:46
PROC: 05HM33Z Insertion of Infusion Device into Right Internal Jugular Vein, Percutaneous Approach (ICD-10-PCS; principal; 2020-06-27)
DX: K52.9 Noninfective gastroenteritis and colitis, unspecified (principal); Z68.41 Body mass index [BMI] 40.0-44.9, adult; E66.01 Morbid (severe) obesity due to excess calories; R31.9 Hematuria, unspecified; F12.188 Cannabis abuse with other cannabis-induced disorder; R10.2 Pelvic and perineal pain
CPT/HCPCS: 36415; 71045; 76700; 76856; 80048; 80053; 80307; 81003; 82150; 83690; 83735; 84100; 84703; 85025; 85610; 85651; 85730; 86140; 93005; 96360; 96361; 96372; 96374; 96375; 96376; 99291; J2405; J2765; J7030